=== PATIENT | male | born 1950 | race African-American/Black ===

== ENCOUNTER 2018-09-04 09:48 | Inpatient (IN) | payer MEDICARE ==
[~2018-09-04] VITALS: Ht 177.8 cm; Wt 126.2 kg
[2018-09-04] VITALS (10 sets, daily range): BP systolic 124–160; BP diastolic 67–80
[2018-09-04] MEDS ORDERED: ONDANSETRON PF 4 MG/2 ML VIAL. IV ONE (10:30)
[2018-09-04] MEDS ORDERED: fentaNYL PF VIAL 100 MCG/2 ML VIAL IV ONE (10:30)
[2018-09-04 11:08] LABS: BASO % 0 % (0-3); EOS # 0.1 x10^3/uL (0.0-0.7); EOS % 1 % (0-3); HEMATOCRIT 47.5 % (39.0-53.0); HEMOGLOBIN 16.8 g/dL (13.0-17.5); LYMPH # 1.6 x10^3/uL (1.0-4.8); LYMPH % 16 % (24-48); MEAN CORPUSCULAR HEMOGLOBIN 31 pg (25-35); MEAN CORPUSCULAR HGB CONC 35 g/dL (31-37); MEAN CORPUSCULAR VOLUME 88 fL (79-100); MONO # 0.9 x10^3/uL (0.0-1.1); MONO % 9 % (0-9); NEUT # 7.5 x10^3uL (1.8-7.7); NEUT % 74 % (31-73); PLATELET COUNT 211 x10^3/uL (140-400); RED CELL DISTRIBUTION WIDTH 13.1 % (11.5-14.5); WHITE BLOOD COUNT 10.1 x10^3/uL (4.0-11.0)
[2018-09-04 11:10] LABS: CALCIUM 9.7 mg/dL (8.5-10.1); GFR 89.9; POTASSIUM 3.6 mmol/L (3.5-5.1)
[2018-09-04 11:15] LABS: ALBUMIN 4.1 g/dL (3.4-5.0); ALBUMIN/GLOBULIN RATIO 1.1 (1.0-1.7); TOTAL BILIRUBIN 2.6 mg/dL (0.2-1.0); TOTAL PROTEIN 7.9 g/dL (6.4-8.2)
--- NOTE | 2018-09-04 11:39 | PHYS DOC ---
Past Medical History Past Medical History: Diabetes-Type II, Hypertension Past Surgical History: Other Additional Past Surgical Histo: 'BACK SX' Alcohol Use: None Drug Use: None Adult General Chief Complaint Chief Complaint: ABDOMINAL PAIN HPI HPI Patient is a 68 year old male who presents with complaining of abdominal pain. Patient complaining of sudden onset of upper abdominal pain that woke him up at 4 AM today as a constant pain without radiation. Patient complaining of nausea associated with anorexia without shortness of of breath, fever and chills, chest pain, urinary symptoms, constipation, history of the same pain. Patient has chronic diarrhea after was started on metformin about 2 months ago without new change. Review of Systems Review of Systems Constitutional: Denies fever or chills [] Eyes: Denies change in visual acuity, redness, or eye pain [] HENT: Denies nasal congestion or sore throat [] Respiratory: Denies cough or shortness of breath [] Cardiovascular: No additional information not addressed in HPI [] GI: Reports abdominal pain, nausea, denies vomiting, bloody stools or diarrhea [] : Denies dysuria or hematuria [] Musculoskeletal: Denies back pain or joint pain [] Integument: Denies rash or skin lesions [] Neurologic: Denies headache, focal weakness or sensory changes [] Endocrine: Denies polyuria or polydipsia [] All other systems were reviewed and found to be within normal limits, except as documented in this note. Current Medications Current Medications Current Medications Medications (Trade) Dose Ordered Sig/Alejandra Start Time Stop Time Status Last Admin Dose Admin Fentanyl Citrate (Fentanyl 2ml Vial) 50 mcg 1X ONCE 09/04/18 10:30 09/04/18 10:32 DC 09/04/18 10:46 50 MCG Ondansetron HCl (Zofran) 4 mg 1X ONCE 09/04/18 10:30 09/04/18 10:32 DC 09/04/18 10:46 4 MG Allergies Allergies Allergies Coded Allergies Type Severity Reaction Last Updated Verified No Known Drug Allergies 09/04/18 No Physical Exam Physical Exam Constitutional: Well developed, well nourished, mild distress, non-toxic appearance, obese. [] HENT: Normocephalic, atraumatic, oropharynx moist. Eyes: PERRLA, EOMI, conjunctiva normal, no discharge. [] Neck: Normal range of motion, no tenderness, supple, no stridor. [] Cardiovascular:Heart rate regular rhythm, no murmur [] Lungs & Thorax: Bilateral breath sounds clear to auscultation [] Abdomen: Bowel sounds normal, soft, epigastric guarding, no tenderness, no masses, no pulsatile masses. [] Skin: Warm, dry, no erythema, no rash. [] Back: No tenderness, no CVA tenderness. [] Extremities: No tenderness, no cyanosis, no clubbing, ROM intact, no edema. [] Neurologic: Alert and oriented X 3, normal motor function, normal sensory functi on, no focal deficits noted. [] Psychologic: Affect normal, judgement normal, mood normal. [] Current Patient Data Vital Signs Vital Signs Date Time Temp Pulse Resp B/P (MAP) Pulse Ox O2 Delivery O2 Flow Rate FiO2 09/04/18 11:30 92 14 188/84 (118) 97 Room Air 09/04/18 09:58 97.6 97.6 Lab Values Laboratory Tests Test 09/04/18 10:07 White Blood Count 10.1 x10^3/uL (4.0-11.0) Red Blood Count 5.40 x10^6/uL (4.30-5.70) Hemoglobin 16.8 g/dL (13.0-17.5) Hematocrit 47.5 % (39.0-53.0) Mean Corpuscular Volume 88 fL (79-100) Mean Corpuscular Hemoglobin 31 pg (25-35) Mean Corpuscular Hemoglobin Concent 35 g/dL (31-37) Red Cell Distribution Width 13.1 % (11.5-14.5) Platelet Count 211 x10^3/uL (140-400) Neutrophils (%) (Auto) 74 % (31-73) H Lymphocytes (%) (Auto) 16 % (24-48) L Monocytes (%) (Auto) 9 % (0-9) Eosinophils (%) (Auto) 1 % (0-3) Basophils (%) (Auto) 0 % (0-3) Neutrophils # (Auto) 7.5 x10^3uL (1.8-7.7) Lymphocytes # (Auto) 1.6 x10^3/uL (1.0-4.8) Monocytes # (Auto) 0.9 x10^3/uL (0.0-1.1) Eosinophils # (Auto) 0.1 x10^3/uL (0.0-0.7) Basophils # (Auto) 0.0 x10^3/uL (0.0-0.2) PTT 33 SEC (24-38) Sodium Level 137 mmol/L (136-145) Potassium Level 3.6 mmol/L (3.5-5.1) Chloride Level 97 mmol/L (98-107) L Carbon Dioxide Level 24 mmol/L (21-32) Anion Gap 16 (6-14) H Blood Urea Nitrogen 20 mg/dL (8-26) Creatinine 1.0 mg/dL (0.7-1.3) Estimated GFR (Cockcroft-Gault) 89.9 BUN/Creatinine Ratio 20 (6-20) Glucose Level 273 mg/dL (70-99) H Calcium Level 9.7 mg/dL (8.5-10.1) Total Bilirubin 2.6 mg/dL (0.2-1.0) H Aspartate Amino Transferase (AST) 26 U/L (15-37) Alanine Aminotransferase (ALT) 29 U/L (16-63) Alkaline Phosphatase 91 U/L (46-116) Creatine Kinase 44 U/L (39-308) Troponin I Quantitative < 0.017 ng/mL (0.000-0.055) Total Protein 7.9 g/dL (6.4-8.2) Albumin 4.1 g/dL (3.4-5.0) Albumin/Globulin Ratio 1.1 (1.0-1.7) Lipase 54 U/L (73-393) L Laboratory Tests 09/04/18 10:07 Laboratory Tests 09/04/18 10:07 EKG EKG EKG interpreted by me. EKG at 1037 showed normal sinus rhythm at rate of 90, normal OH interval, poor R-wave progress in anteroseptal leads, no acute ST and T-wave abnormalities. Radiology/Procedures Radiology/Procedures [facility] [address] [place] [address] IMAGING REPORT Signed PATIENT: JOMAR MAYES ACCOUNT: [id number] : 1950 LOCATION: ER AGE: 68 SEX: M EXAM STATUS: REG ER ORD. PHYSICIAN: GUERRERO BOO MD REASON: upper abd pain, [facility] HAS SEEN, WILL BE THERE SOON I CAN PROCEDURE: ABDOMEN LTD Examination: Ultrasound right upper quadrant abdomen HISTORY: History of upper abdominal abdominal pain. COMPARISON: None available FINDINGS: Pancreas is not well-visualized due to bowel gas. There is increased echogenicity noted throughout the liver likely hepatic steatosis. The gallbladder is mildly distended. Moderate-sized sludge ball identified within the gallbladder. The gallbladder wall thickness measures 2 mm. Examination is positive for ultrasonographic evidence of Phelps's sign. The right kidney measures 12 cm in length. IMPRESSION: 1. Moderate-sized sludge ball identified within the gallbladder. Examination is positive for ultrasonographic evidence of Phelps's sign however no evidence of pericholecystic fluid or gallbladder wall thickening identified to suggest acute cholecystitis. 2. Hepatomegaly with hepatic steatosis. Electronically signed by: Demarcus Grover MD (09/04/2018 12:20 PM) [facility] DICTATED and SIGNED BY: DEMARCUS GROVER MD DATE: 09/04/18 1220 [facility] [address] [place], [place] [id number] IMAGING REPORT Signed PATIENT: JOMAR MAYES ACCOUNT: [id number] : 1950 LOCATION: [address] [place] [address] AGE: 68 SEX: M EXAM STATUS: ADM IN ORD. PHYSICIAN: GUERRERO BOO MD REASON: epigastric pain PROCEDURE: CT ABD PELV W/ IV CONTRST ONLY Examination: CT of the abdomen pelvis with IV contrast HISTORY: History of epigastric pain COMPARISON: None available technique: Axial CT images of the abdomen pelvis were performed with IV contrast. Coronal and sagittal reformats are performed Exposure: One or more of the following individualized dose reduction techniques were utilized for this examination: 1. Automated exposure control 2. Adjustment of the mA and/or kV according to patient size 3. Use of iterative reconstruction technique FINDINGS: The bibasilar lungs are clear. No evidence of free air identified in the abdomen. There is diffuse decreased attenuation noted in the liver likely hepatic steatosis. The visualized spleen, adrenals grossly appears unremarkable. The gallbladder is mildly distended. There is a 2.8 cm density identified within the gallbladder probably sludge ball. Fatty atrophic changes of the pancreas. Small hiatal hernia. The stomach is minimally distended. The small bowel is nondilated. Feces and gas noted in the colon. The appendix is not identified. Urinary bladder is mildly distended. 7 mm calculus identified in the right kidney. Punctate 1 mm calculus left kidney. No evidence of hydronephrosis. Moderate aortic atherosclerosis. Moderate degenerative changes thoracic and lumbar spine. IMPRESSION: 1. 2.8 cm density identified in the proximal gallbladder likely sludge ball. 2. Hepatic steatosis. 2. Bilateral nephrolithiasis. Electronically signed by: Demarcus Grover MD (09/04/2018 1:06 PM) [facility] DICTATED and SIGNED BY: DEMARCUS GROVER MD DATE: 09/04/18 1307 Course & Med Decision Making Course & Med Decision Making Pertinent Labs and Imaging studies reviewed. (See chart for details) Evaluation of patient in ER showed 68-year-old male patient with complaining of sudden onset of epigastric pain as this morning. Patient had unremarkable labs except for mild elevation of bilirubin. Gallbladder ultrasound showed sludge that confirmed with CT of abdomen and pelvis. Dr. Pinon on-call surgeon was consulted at 1213 and recommended to admit patient to hospitalist. Patient requiring admission for further evaluation and treatment. Discussed with Dr. Landin who is in agreement with admission. Discussed findings and plan with patient and family, who acknowledge understanding and agreement. Dragon Disclaimer Dragon Disclaimer This electronic medical record was generated, in whole or in part, using a voice recognition dictation system. Departure Departure Impression: Primary Impression: Biliary colic Additional Impressions: Hyperglycemia Serum total bilirubin elevated Gallbladder sludge Disposition: ADMITTED INPATIENT (at 1220) Admitting Physician: Juan Capone (accepted admission at 1219) Condition: IMPROVED Referrals: KATELYNN WHELAN MD (PCP) Problem Qualifiers GUERRERO BOO MD September 04, 2018 11:39
--- NOTE | 2018-09-04 12:23 | RAD ---
Examination: Ultrasound right upper quadrant abdomen HISTORY: History of upper abdominal abdominal pain. COMPARISON: None available FINDINGS: Pancreas is not well-visualized due to bowel gas. There is increased echogenicity noted throughout the liver likely hepatic steatosis. The gallbladder is mildly distended. Moderate-sized sludge ball identified within the gallbladder. The gallbladder wall thickness measures 2 mm. Examination is positive for ultrasonographic evidence of Phelps's sign. The right kidney measures 12 cm in length. IMPRESSION: 1. Moderate-sized sludge ball identified within the gallbladder. Examination is positive for ultrasonographic evidence of Phelps's sign however no evidence of pericholecystic fluid or gallbladder wall thickening identified to suggest acute cholecystitis. 2. Hepatomegaly with hepatic steatosis. Electronically signed by: Demarcus Grover MD (09/04/2018 12:20 PM) [facility]
[2018-09-04] MEDS: IV NORMAL SALINE 1000ML BAG 1,000 ML IV SCH ×3 (12:25→22:34)
[2018-09-04] MEDS ORDERED: IOHEXOL 300 MG/ML 100ML VIAL. IV ONE (12:30)
[2018-09-04] MEDS ORDERED: CONTRAST GIVEN. MC PRN (12:30)
--- NOTE | 2018-09-04 12:42 | PDOC1 ---
History and Physical Date of Admission Date of Admission DATE: 09/04/18 TIME: 12:41 Identification/Chief Complaint Chief Complaint seen in er ,Patient is a 68 year old male who presents with complaining of abdominal pain. Patient complaining of sudden onset of upper abdominal pain that woke him up at 4 AM today as a constant pain without radiation. Patient complaining of nausea associated with anorexia without shortness of of breath, fever and chills, chest pain, urinary symptoms, constipation, history of the same pain. Past Medical History Past Medical History Past Medical History Past Medical History Past Medical History: Diabetes-Type II, Hypertension Past Surgical History: Other Additional Past Surgical Histo: 'BACK SX' Alcohol Use: None Drug Use: None FAMILY HX HTN Cardiovascular: HTN Family History Family History: High Cholestrol, Hypertension Social History Smoke: No ALCOHOL: none Drugs: None Current Problem List Problem List Problems Medical Problems: (1) Biliary colic Status: Acute (2) Hyperglycemia Status: Acute (3) Serum total bilirubin elevated Status: Acute Current Medications Current Medications Current Medications Fentanyl Citrate (Fentanyl 2ml Vial) 50 mcg 1X ONCE IV Last administered on 09/04/18at 10:46; Start 09/04/18 at 10:30; Stop 09/04/18 at 10:32; Status DC Ondansetron HCl (Zofran) 4 mg 1X ONCE IV Last administered on 09/04/18at 10:46; Start 09/04/18 at 10:30; Stop 09/04/18 at 10:32; Status DC Hydromorphone HCl (Dilaudid) 1 mg 1X ONCE IV ; Start 09/04/18 at 12:45; Stop 09/04/18 at 12:46 Iohexol (Omnipaque 300 Mg/ml) 100 ml 1X ONCE IV ; Start 09/04/18 at 12:30; Stop 09/04/18 at 12:31; Status DC Sodium Chloride 1,000 ml @ 150 mls/hr Q6H40M IV ; Start 09/04/18 at 12:25; Stop 09/05/18 at 12:24 Info (CONTRAST GIVEN -- Rx MONITORING) 1 each PRN DAILY PRN MC SEE COMMENTS; Start 09/04/18 at 12:30; Stop 09/06/18 at 12:29 Allergies Allergies: Coded Allergies: No Known Drug Allergies (Unverified , 09/04/18) ROS Review of System Review of Systems Review of Systems Constitutional: Denies fever or chills [] Eyes: Denies change in visual acuity, redness, or eye pain [] HENT: Denies nasal congestion or sore throat [] Respiratory: Denies cough or shortness of breath [] Cardiovascular: No additional information not addressed in HPI [] GI: Reports abdominal pain, nausea, denies vomiting, bloody stools or diarrhea [] : Denies dysuria or hematuria [] Musculoskeletal: Denies back pain or joint pain [] Integument: Denies rash or skin lesions [] Neurologic: Denies headache, focal weakness or sensory changes [] Endocrine: Denies polyuria or polydipsia [] 14 pt systems were reviewed and found to be within normal limits, except as documented Physical Exam Physical Exam Physical Exam Physical Exam Constitutional: Well developed, well nourished, mild distress, non-toxic appearance, obese. [] HENT: Normocephalic, atraumatic, oropharynx moist. Eyes: PERRLA, EOMI, conjunctiva normal, no discharge. [] Neck: Normal range of motion, no tenderness, supple, no stridor. [] Cardiovascular:Heart rate regular rhythm, no murmur [] Lungs & Thorax: Bilateral breath sounds clear to auscultation [] Abdomen: Bowel sounds normal, soft, epigastric guarding, no tenderness, no masses, no pulsatile masses. [] Skin: Warm, dry, no erythema, no rash. [] Back: No tenderness, no CVA tenderness. [] Extremities: No tenderness, no cyanosis, no clubbing, ROM intact, no edema. [] Neurologic: Alert and oriented X 3, normal motor function, normal sensory function, no focal deficits noted. [] Psychologic: Affect normal, judgement normal, mood normal. [] General: Alert, Oriented X3, Cooperative HEENT: Atraumatic, PERRLA Lungs: Clear to auscultation Rectal Exam: not examined Neuro: Normal speech, Cranial nerves 3-12 NL Psych/Mental Status: Mental status NL, Mood NL Vitals Vitals Vital Signs Date Time Temp Pulse Resp B/P (MAP) Pulse Ox O2 Delivery O2 Flow Rate FiO2 09/04/18 10:46 20 Room Air 09/04/18 09:58 97.6 93 195/92 (126) 97 97.6 Labs Labs Laboratory Tests Test 09/04/18 10:07 White Blood Count 10.1 x10^3/uL (4.0-11.0) Red Blood Count 5.40 x10^6/uL (4.30-5.70) Hemoglobin 16.8 g/dL (13.0-17.5) Hematocrit 47.5 % (39.0-53.0) Mean Corpuscular Volume 88 fL (79-100) Mean Corpuscular Hemoglobin 31 pg (25-35) Mean Corpuscular Hemoglobin Concent 35 g/dL (31-37) Red Cell Distribution Width 13.1 % (11.5-14.5) Platelet Count 211 x10^3/uL (140-400) Neutrophils (%) (Auto) 74 % (31-73) Lymphocytes (%) (Auto) 16 % (24-48) Monocytes (%) (Auto) 9 % (0-9) Eosinophils (%) (Auto) 1 % (0-3) Basophils (%) (Auto) 0 % (0-3) Neutrophils # (Auto) 7.5 x10^3uL (1.8-7.7) Lymphocytes # (Auto) 1.6 x10^3/uL (1.0-4.8) Monocytes # (Auto) 0.9 x10^3/uL (0.0-1.1) Eosinophils # (Auto) 0.1 x10^3/uL (0.0-0.7) Basophils # (Auto) 0.0 x10^3/uL (0.0-0.2) Activated Partial Thromboplast Time 33 SEC (24-38) Sodium Level 137 mmol/L (136-145) Potassium Level 3.6 mmol/L (3.5-5.1) Chloride Level 97 mmol/L (98-107) Carbon Dioxide Level 24 mmol/L (21-32) Anion Gap 16 (6-14) Blood Urea Nitrogen 20 mg/dL (8-26) Creatinine 1.0 mg/dL (0.7-1.3) Estimated GFR (Cockcroft-Gault) 89.9 BUN/Creatinine Ratio 20 (6-20) Glucose Level 273 mg/dL (70-99) Calcium Level 9.7 mg/dL (8.5-10.1) Total Bilirubin 2.6 mg/dL (0.2-1.0) Aspartate Amino Transf (AST/SGOT) 26 U/L (15-37) Alanine Aminotransferase (ALT/SGPT) 29 U/L (16-63) Alkaline Phosphatase 91 U/L (46-116) Creatine Kinase 44 U/L (39-308) Troponin I Quantitative < 0.017 ng/mL (0.000-0.055) Total Protein 7.9 g/dL (6.4-8.2) Albumin 4.1 g/dL (3.4-5.0) Albumin/Globulin Ratio 1.1 (1.0-1.7) Lipase 54 U/L (73-393) Laboratory Tests Test 09/04/18 10:07 White Blood Count 10.1 x10^3/uL (4.0-11.0) Red Blood Count 5.40 x10^6/uL (4.30-5.70) Hemoglobin 16.8 g/dL (13.0-17.5) Hematocrit 47.5 % (39.0-53.0) Mean Corpuscular Volume 88 fL (79-100) Mean Corpuscular Hemoglobin 31 pg (25-35) Mean Corpuscular Hemoglobin Concent 35 g/dL (31-37) Red Cell Distribution Width 13.1 % (11.5-14.5) Platelet Count 211 x10^3/uL (140-400) Neutrophils (%) (Auto) 74 % (31-73) Lymphocytes (%) (Auto) 16 % (24-48) Monocytes (%) (Auto) 9 % (0-9) Eosinophils (%) (Auto) 1 % (0-3) Basophils (%) (Auto) 0 % (0-3) Neutrophils # (Auto) 7.5 x10^3uL (1.8-7.7) Lymphocytes # (Auto) 1.6 x10^3/uL (1.0-4.8) Monocytes # (Auto) 0.9 x10^3/uL (0.0-1.1) Eosinophils # (Auto) 0.1 x10^3/uL (0.0-0.7) Basophils # (Auto) 0.0 x10^3/uL (0.0-0.2) Activated Partial Thromboplast Time 33 SEC (24-38) Sodium Level 137 mmol/L (136-145) Potassium Level 3.6 mmol/L (3.5-5.1) Chloride Level 97 mmol/L (98-107) Carbon Dioxide Level 24 mmol/L (21-32) Anion Gap 16 (6-14) Blood Urea Nitrogen 20 mg/dL (8-26) Creatinine 1.0 mg/dL (0.7-1.3) Estimated GFR (Cockcroft-Gault) 89.9 BUN/Creatinine Ratio 20 (6-20) Glucose Level 273 mg/dL (70-99) Calcium Level 9.7 mg/dL (8.5-10.1) Total Bilirubin 2.6 mg/dL (0.2-1.0) Aspartate Amino Transf (AST/SGOT) 26 U/L (15-37) Alanine Aminotransferase (ALT/SGPT) 29 U/L (16-63) Alkaline Phosphatase 91 U/L (46-116) Creatine Kinase 44 U/L (39-308) Troponin I Quantitative < 0.017 ng/mL (0.000-0.055) Total Protein 7.9 g/dL (6.4-8.2) Albumin 4.1 g/dL (3.4-5.0) Albumin/Globulin Ratio 1.1 (1.0-1.7) Lipase 54 U/L (73-393) Images Images SEX: M EXAM STATUS: REG ER ORD. PHYSICIAN: GUERRERO BOO MD REASON: upper abd pain, [facility] HAS SEEN, WILL BE THERE SOON I CAN PROCEDURE: ABDOMEN LTD Examination: Ultrasound right upper quadrant abdomen HISTORY: History of upper abdominal abdominal pain. COMPARISON: None available FINDINGS: Pancreas is not well-visualized due to bowel gas. There is increased echogenicity noted throughout the liver likely hepatic steatosis. The gallbladder is mildly distended. Moderate-sized sludge ball identified within the gallbladder. The gallbladder wall thickness measures 2 mm. Examination is positive for ultrasonographic evidence of Phelps's sign. The right kidney measures 12 cm in length. IMPRESSION: 1. Moderate-sized sludge ball identified within the gallbladder. Examination is positive for ultrasonographic evidence of Phelps's sign however no evidence of pericholecystic fluid or gallbladder wall thickening identified to suggest acute cholecystitis. 2. Hepatomegaly with hepatic steatosis. Electronically signed by: Demarcus Grover MD (09/04/2018 12:20 PM) [facility] VTE Prophylaxis Ordered VTE Prophylaxis Devices: Yes VTE Pharmacological Prophylaxi: Yes Assessment/Plan Assessment/Plan IMPRESSION: 1. Moderate-sized sludge ball identified within the gallbladder. Examination is positive for ultrasonographic evidence of Phelps's sign however no evidence of pericholecystic fluid or gallbladder wall thickening identified to suggest acute cholecystitis. 2. Hepatomegaly with hepatic steatosis. 3. Morbid obesity plan admit SURG consult CARLOS MIRAMONTES MD September 04, 2018 12:42
[2018-09-04] MEDS ORDERED: HYDROmorphone 2 MG/ML VIAL IV ONE (12:45)
--- NOTE | 2018-09-04 13:09 | RAD ---
Examination: CT of the abdomen pelvis with IV contrast HISTORY: History of epigastric pain COMPARISON: None available technique: Axial CT images of the abdomen pelvis were performed with IV contrast. Coronal and sagittal reformats are performed Exposure: One or more of the following individualized dose reduction techniques were utilized for this examination: 1. Automated exposure control 2. Adjustment of the mA and/or kV according to patient size 3. Use of iterative reconstruction technique FINDINGS: The bibasilar lungs are clear. No evidence of free air identified in the abdomen. There is diffuse decreased attenuation noted in the liver likely hepatic steatosis. The visualized spleen, adrenals grossly appears unremarkable. The gallbladder is mildly distended. There is a 2.8 cm density identified within the gallbladder probably sludge ball. Fatty atrophic changes of the pancreas. Small hiatal hernia. The stomach is minimally distended. The small bowel is nondilated. Feces and gas noted in the colon. The appendix is not identified. Urinary bladder is mildly distended. 7 mm calculus identified in the right kidney. Punctate 1 mm calculus left kidney. No evidence of hydronephrosis. Moderate aortic atherosclerosis. Moderate degenerative changes thoracic and lumbar spine. IMPRESSION: 1. 2.8 cm density identified in the proximal gallbladder likely sludge ball. 2. Hepatic steatosis. 2. Bilateral nephrolithiasis. Electronically signed by: Demarcus Grover MD (09/04/2018 1:06 PM) [facility]
[2018-09-04 13:45] LABS: BILIRUBIN,URINE NEGATIVE (NEG); CLARITY,URINE CLEAR; COLOR,URINE YELLOW; NITRITE,URINE NEGATIVE (NEG); PH,URINE 5.5; PROTEIN,URINE NEGATIVE (NEG-TRACE)
[2018-09-04 13:52] LABS: BACTERIA,URINE 0 /HPF (0-FEW); RBC,URINE 0 /HPF (0-2); WBC,URINE 0 /HPF (0-4)
[2018-09-04] MEDS ORDERED: IV RINGERS,LACTATED 1000ML 1,000 ML IV SCH (14:47)
[2018-09-04] MEDS ORDERED: ONDANSETRON PF 4 MG/2 ML VIAL. IV PRN (15:00)
[2018-09-04] MEDS ORDERED: fentaNYL PF VIAL 100 MCG/2 ML VIAL IV PRN ×2 (15:00)
[2018-09-04] MEDS ORDERED: PROCHLORPERAZINE 10 MG/2 ML VIAL. IV PRN (15:00)
[2018-09-04] MEDS ORDERED: LIDOCAINE 1% PF 2 ML VIAL. ID PRN (15:00)
[2018-09-04] MEDS ORDERED: HYDROmorphone 2 MG/ML VIAL IV PRN (15:00)
[2018-09-04] MEDS ORDERED: MORPHINE SULFATE 2 MG/ML VIAL. IV PRN (15:00)
--- NOTE | 2018-09-04 15:03 | PDOC2 ---
CONSULT Date of Consult Date of Consult DATE: 09/04/18 TIME: 14:54 Reason for Consult Reason for Consult: epigastric pain Referring Physician Referring Physician: Dr Capone Identification/Chief Complaint Chief Complaint epigastric pain Source Source: Chart review, Patient History of Present Illness Reason for Visit: Mr Merlos is a 68 yo obese male recently Dx with DM who was awakened earlier this AM with 7 out 10 pain in his epigastrium. He came to the ED where an US showed a sludge ball in his gallbladder. No similar previous episodes Past Medical History Cardiovascular: HTN Endocrine: Diabetes Past Surgical History Past Surgical History: Other (back surgery) Family History Family History: High Cholestrol, Hypertension Social History No ALCOHOL: none Drugs: None Lives: with Family Current Problem List Problem List Problems Medical Problems: (1) Biliary colic Status: Acute (2) Hyperglycemia Status: Acute (3) Serum total bilirubin elevated Status: Acute Current Medications Current Medications Current Medications Fentanyl Citrate (Fentanyl 2ml Vial) 50 mcg 1X ONCE IV Last administered on 09/04/18at 10:46; Start 09/04/18 at 10:30; Stop 09/04/18 at 10:32; Status DC Ondansetron HCl (Zofran) 4 mg 1X ONCE IV Last administered on 09/04/18at 10:46; Start 09/04/18 at 10:30; Stop 09/04/18 at 10:32; Status DC Hydromorphone HCl (Dilaudid) 1 mg 1X ONCE IV Last administered on 09/04/18at 12:59; Start 09/04/18 at 12:45; Stop 09/04/18 at 12:46; Status DC Iohexol (Omnipaque 300 Mg/ml) 100 ml 1X ONCE IV Last administered on 09/04/18at 12:50; Start 09/04/18 at 12:30; Stop 09/04/18 at 12:31; Status DC Sodium Chloride 1,000 ml @ 150 mls/hr Q6H40M IV ; Start 09/04/18 at 12:25; Stop 09/05/18 at 12:24 Info (CONTRAST GIVEN -- Rx MONITORING) 1 each PRN DAILY PRN MC SEE COMMENTS; Start 09/04/18 at 12:30; Stop 09/06/18 at 12:29 Cefazolin Sodium 3 gm/Dextrose 100 ml @ 200 mls/hr 1X PREOP PRN IV protocol; Start 09/05/18 at 06:00; Stop 09/05/18 at 15:00 Ondansetron HCl (Zofran) 4 mg PRN Q6HRS PRN IV NAUSEA/VOMITING; Start 09/04/18 at 15:00; Stop 09/05/18 at 14:59 Fentanyl Citrate (Fentanyl 2ml Vial) 25 mcg PRN Q5MIN PRN IV MILD PAIN 1-3; Start 09/04/18 at 15:00; Stop 09/05/18 at 14:59 Fentanyl Citrate (Fentanyl 2ml Vial) 50 mcg PRN Q5MIN PRN IV MODERATE TO SEVERE PAIN; Start 09/04/18 at 15:00; Stop 09/05/18 at 14:59 Morphine Sulfate (Morphine Sulfate) 1 mg PRN Q10MIN PRN IV SEVERE PAIN 7-10; Start 09/04/18 at 15:00; Stop 09/05/18 at 14:59 Ringer's Solution 1,000 ml @ 30 mls/hr Q24H IV ; Start 09/04/18 at 14:47; Stop 09/05/18 at 02:46 Lidocaine HCl (Xylocaine-Mpf 1% 2ml Vial) 2 ml PRN 1X PRN ID PRIOR TO IV START; Start 09/04/18 at 15:00; Stop 09/05/18 at 14:59 Hydromorphone HCl (Dilaudid) 0.5 mg PRN Q10MIN PRN IV SEV PAIN, Second choice; Start 09/04/18 at 15:00; Stop 09/05/18 at 14:59 Prochlorperazine Edisylate (Compazine) 5 mg PACU PRN PRN IV NAUSEA, MRX1; Start 09/04/18 at 15:00; Stop 09/05/18 at 14:59 Allergies Allergies: Coded Allergies: No Known Drug Allergies (Unverified , 09/04/18) ROS Gastrointestinal: Yes Nausea, Yes Abdominal Pain Physical Exam General: Alert, Oriented X3, No acute distress HEENT: Atraumatic Lungs: Normal air movement Heart: Regular rate Abdomen: Soft, Other (mildy TTP in the RUQ) Extremities: No clubbing Skin: Other (warm, dry) Vitals VITALS Vital Signs Date Time Temp Pulse Resp B/P (MAP) Pulse Ox O2 Delivery O2 Flow Rate FiO2 5/18/19 12:59 18 09/04/18 12:30 94 Room Air 09/04/18 11:30 97 09/04/18 09:58 97.6 97.6 Labs Labs Laboratory Tests Test 09/04/18 10:07 09/04/18 13:15 White Blood Count 10.1 x10^3/uL (4.0-11.0) Red Blood Count 5.40 x10^6/uL (4.30-5.70) Hemoglobin 16.8 g/dL (13.0-17.5) Hematocrit 47.5 % (39.0-53.0) Mean Corpuscular Volume 88 fL (79-100) Mean Corpuscular Hemoglobin 31 pg (25-35) Mean Corpuscular Hemoglobin Concent 35 g/dL (31-37) Red Cell Distribution Width 13.1 % (11.5-14.5) Platelet Count 211 x10^3/uL (140-400) Neutrophils (%) (Auto) 74 % (31-73) Lymphocytes (%) (Auto) 16 % (24-48) Monocytes (%) (Auto) 9 % (0-9) Eosinophils (%) (Auto) 1 % (0-3) Basophils (%) (Auto) 0 % (0-3) Neutrophils # (Auto) 7.5 x10^3uL (1.8-7.7) Lymphocytes # (Auto) 1.6 x10^3/uL (1.0-4.8) Monocytes # (Auto) 0.9 x10^3/uL (0.0-1.1) Eosinophils # (Auto) 0.1 x10^3/uL (0.0-0.7) Basophils # (Auto) 0.0 x10^3/uL (0.0-0.2) Activated Partial Thromboplast Time 33 SEC (24-38) Sodium Level 137 mmol/L (136-145) Potassium Level 3.6 mmol/L (3.5-5.1) Chloride Level 97 mmol/L (98-107) Carbon Dioxide Level 24 mmol/L (21-32) Anion Gap 16 (6-14) Blood Urea Nitrogen 20 mg/dL (8-26) Creatinine 1.0 mg/dL (0.7-1.3) Estimated GFR (Cockcroft-Gault) 89.9 BUN/Creatinine Ratio 20 (6-20) Glucose Level 273 mg/dL (70-99) Calcium Level 9.7 mg/dL (8.5-10.1) Total Bilirubin 2.6 mg/dL (0.2-1.0) Aspartate Amino Transf (AST/SGOT) 26 U/L (15-37) Alanine Aminotransferase (ALT/SGPT) 29 U/L (16-63) Alkaline Phosphatase 91 U/L (46-116) Creatine Kinase 44 U/L (39-308) Troponin I Quantitative < 0.017 ng/mL (0.000-0.055) Total Protein 7.9 g/dL (6.4-8.2) Albumin 4.1 g/dL (3.4-5.0) Albumin/Globulin Ratio 1.1 (1.0-1.7) Lipase 54 U/L (73-393) Urine Collection Type Void Urine Color Yellow Urine Clarity Clear Urine pH 5.5 Urine Specific [place] >=1.030 Urine Protein Negative mg/dL (NEG-TRACE) Urine Glucose (UA) >=1000 mg/dL (NEG) Urine Ketones (Stick) 15 mg/dL (NEG) Urine Blood Negative (NEG) Urine Nitrite Negative (NEG) Urine Bilirubin Negative (NEG) Urine Urobilinogen Dipstick 1.0 mg/dL (0.2 mg/dL) Urine Leukocyte Esterase Negative (NEG) Urine RBC 0 /HPF (0-2) Urine WBC 0 /HPF (0-4) Urine Squamous Epithelial Cells None /LPF Urine Bacteria 0 /HPF (0-FEW) Urine Mucus Marked /LPF Laboratory Tests Test 09/04/18 10:07 09/04/18 13:15 White Blood Count 10.1 x10^3/uL (4.0-11.0) Red Blood Count 5.40 x10^6/uL (4.30-5.70) Hemoglobin 16.8 g/dL (13.0-17.5) Hematocrit 47.5 % (39.0-53.0) Mean Corpuscular Volume 88 fL (79-100) Mean Corpuscular Hemoglobin 31 pg (25-35) Mean Corpuscular Hemoglobin Concent 35 g/dL (31-37) Red Cell Distribution Width 13.1 % (11.5-14.5) Platelet Count 211 x10^3/uL (140-400) Neutrophils (%) (Auto) 74 % (31-73) Lymphocytes (%) (Auto) 16 % (24-48) Monocytes (%) (Auto) 9 % (0-9) Eosinophils (%) (Auto) 1 % (0-3) Basophils (%) (Auto) 0 % (0-3) Neutrophils # (Auto) 7.5 x10^3uL (1.8-7.7) Lymphocytes # (Auto) 1.6 x10^3/uL (1.0-4.8) Monocytes # (Auto) 0.9 x10^3/uL (0.0-1.1) Eosinophils # (Auto) 0.1 x10^3/uL (0.0-0.7) Basophils # (Auto) 0.0 x10^3/uL (0.0-0.2) Activated Partial Thromboplast Time 33 SEC (24-38) Sodium Level 137 mmol/L (136-145) Potassium Level 3.6 mmol/L (3.5-5.1) Chloride Level 97 mmol/L (98-107) Carbon Dioxide Level 24 mmol/L (21-32) Anion Gap 16 (6-14) Blood Urea Nitrogen 20 mg/dL (8-26) Creatinine 1.0 mg/dL (0.7-1.3) Estimated GFR (Cockcroft-Gault) 89.9 BUN/Creatinine Ratio 20 (6-20) Glucose Level 273 mg/dL (70-99) Calcium Level 9.7 mg/dL (8.5-10.1) Total Bilirubin 2.6 mg/dL (0.2-1.0) Aspartate Amino Transf (AST/SGOT) 26 U/L (15-37) Alanine Aminotransferase (ALT/SGPT) 29 U/L (16-63) Alkaline Phosphatase 91 U/L (46-116) Creatine Kinase 44 U/L (39-308) Troponin I Quantitative < 0.017 ng/mL (0.000-0.055) Total Protein 7.9 g/dL (6.4-8.2) Albumin 4.1 g/dL (3.4-5.0) Albumin/Globulin Ratio 1.1 (1.0-1.7) Lipase 54 U/L (73-393) Urine Collection Type Void Urine Color Yellow Urine Clarity Clear Urine pH 5.5 Urine Specific [place] >=1.030 Urine Protein Negative mg/dL (NEG-TRACE) Urine Glucose (UA) >=1000 mg/dL (NEG) Urine Ketones (Stick) 15 mg/dL (NEG) Urine Blood Negative (NEG) Urine Nitrite Negative (NEG) Urine Bilirubin Negative (NEG) Urine Urobilinogen Dipstick 1.0 mg/dL (0.2 mg/dL) Urine Leukocyte Esterase Negative (NEG) Urine RBC 0 /HPF (0-2) Urine WBC 0 /HPF (0-4) Urine Squamous Epithelial Cells None /LPF Urine Bacteria 0 /HPF (0-FEW) Urine Mucus Marked /LPF Images Images US and CT done earlier are reviewed Assessment/Plan Assessment/Plan symptomatic GB disease DM obesity explained risks of l/s cholecystectomy including but not limited to bleeding, infection, injury to bowel, liver or bile ducts with need for further surgery, possible open procedure or diarrhea post op questions answered he will proceed CJ LLOYD MD September 04, 2018 15:03
[2018-09-04] MEDS ORDERED: SURGICEL HEMOSTAT 4X8 EACH. ONE (15:18)
[2018-09-04] MEDS ORDERED: BUPIVAC MPF-EPI 0.5%-1:200000 30 ML VIAL. ONE (15:18)
[2018-09-04] MEDS ORDERED: GLUCAGON,HUMAN RECOMBINANT 1 MG/ML VIAL. ONE (15:18)
[2018-09-04] MEDS ORDERED: IOHEXOL 300 MG/ML 50 ML VIAL. ONE (15:18)
[2018-09-04] MEDS ORDERED: LIDOCAINE 2% PF 5 ML VIAL. ONE (15:29)
[2018-09-04] MEDS ORDERED: PROPOFOL 20 ML IV ONE (15:29)
[2018-09-04] MEDS ORDERED: ONDANSETRON PF 4 MG/2 ML VIAL. ONE (15:30)
[2018-09-04] MEDS ORDERED: DEXAMETHASONE SOD PHOS 4 MG/ML VIAL ONE ×2 (15:30)
[2018-09-04] MEDS ORDERED: SUCCINYLCHOLINE 200 MG/10 ML VIAL. ONE (15:30)
[2018-09-04] MEDS ORDERED: ROCURONIUM 50 MG/5 ML VIAL. ONE (15:31)
[2018-09-04] MEDS ORDERED: fentaNYL PF VIAL 100 MCG/2 ML VIAL ONE ×2 (15:31→17:03)
[2018-09-04] MEDS ORDERED: ceFAZolin SODIUM 3 GM in IV DEXTROSE 5% 100ML 100 ML IV PRN (15:44)
[2018-09-04] MEDS ORDERED: NEOSTIGMINE METHYLSULFATE 5 MG/5 ML SYRINGE. ONE (17:34)
[2018-09-04] MEDS ORDERED: GLYCOPYRROLATE 1 MG/5 ML VIAL. ONE (17:35)
--- NOTE | 2018-09-04 18:07 | PDOC ---
BRIEF OPERATIVE NOTE Date: September 04, 2018 Pre-Op Diagnosis cholecystitis Post-Op Diagnosis same, gangrenous Procedure Performed l/s darell with cholangiograms Surgeon Zi Mud Car Worker Rose VALDERRAMA Anesthesia Type: General Blood Loss 10cc IV Fluid 500cc Specimens Obtained GB, bile culture Findings gangrenous cholecystitis Complications none Operative Note Wk # [id number] CJ LLOYD MD September 04, 2018 18:07
[2018-09-04] MEDS ORDERED: INSULIN REGULAR 100 UNIT/ML 3ML VIAL. SQ SCH (18:15)
[2018-09-04] MEDS ORDERED: INSULIN LISPRO 100 UNIT/ML 3ML VIAL. SQ ONE (18:30)
[2018-09-04] MEDS ORDERED: INSULIN LISPRO 100 UNIT/ML 3ML VIAL. SQ SCH (18:30)
--- NOTE | 2018-09-04 19:41 | RAD ---
Examination: Operative cholangiogram History: Cholecystectomy. Procedure: Fluoroscopic images were provided during the procedure. The cystic duct has been catheterized and contrast has been injected. Findings: The common hepatic bile duct and common bile duct are patent without evidence of intraluminal filling defect or obstruction. Contrast empties normally into the duodenum. Total fluoroscopic time 0.14 minutes. 2 fluoroscopic images obtained. Impression: Normal operative cholangiogram. Electronically signed by: Demarcus Grover MD (09/04/2018 7:38 PM) [facility]
--- NOTE | 2018-09-04 19:45 | OP ---
DATE OF SURGERY: 09/04/2018 PREOPERATIVE DIAGNOSIS: Cholecystitis. POSTOPERATIVE DIAGNOSIS: Cholecystitis, gangrenous. PROCEDURE: Laparoscopic cholecystectomy with cholangiogram. SURGEON: Casey Lloyd MD PLANT FACILITIES TECHNICIAN: JANNIE Liz. ANESTHESIA: General endotracheal. ESTIMATED BLOOD LOSS: 10. INTRAVENOUS FLUID: 500. INDICATIONS: The patient is an obese 68-year-old gentleman with right upper quadrant pain and ultrasound showing a probable sludge ball in the gallbladder. He is brought for cholecystectomy. OPERATIVE FINDINGS: The liver was generous and smooth. The gallbladder had gangrenous changes. The cystic duct was packed with small stones. Visual inspection of the remainder of the abdomen failed to reveal obvious abnormalities. DESCRIPTION OF PROCEDURE: The patient brought to the operating suite, given a general endotracheal anesthetic and the abdomen prepped and draped in usual sterile fashion. A supraumbilical incision was infiltrated with local anesthetic, incised and a 5 mm Visiport used to safely gain access into the abdominal cavity, taking care to avoid injury to abdominal contents. Pneumoperitoneum established. Camera inserted. Inspection carried out. With the table in reverse Trendelenburg, rolled to the left, the epigastric, midclavicular, and lateral ports were placed under direct vision. The gallbladder was aspirated of approximately 80 mL of concentrated bile to allow grasping of the fundus and retraction of the gallbladder superolaterally. The cystic duct and cystic artery were identified. The duct was clipped on the gallbladder side. When opened for cholangiograms, we milked several small stones from the cystic duct. Cholangiograms were made. These were normal save what appeared to be a remaining small stone at the junction of cystic duct, common duct. In light of this, the catheter was changed to saline and with vigorous flushing of the cystic stump, the stone was delivered. The cystic duct was then clipped x 3 and divided, taking care to avoid injury or compromise the common duct. Cystic artery was clipped and divided and the gallbladder freed from the bed and placed in an EndoCatch bag. Good hemostasis present in the fossa, augmented with Surgicel. No evidence of bile leak seen. A 19-Japanese round Darrel drain was brought through the epigastric port out the lateral port, sewn to the skin with a silk stitch and left in the subhepatic space for postoperative drainage. Table returned to level. Gallbladder delivered through the epigastric incision. Epigastric incision closed with interrupted 0 Vicryl suture. Intra-abdominal pressure decreased to 6 cm of water. No bleeding from the epigastric closure. Some oozing from the midclavicular port site was controlled with cautery and local anesthetic and at 6 cm intra-abdominal pressure showed no evidence of bleeding. The drain site was unremarkable. Abdomen decompressed. Camera removed, no bleeding seen. Skin incisions closed with subcuticular 4-0 Monocryl. Steri-Strips and sterile dressings applied. The patient was awakened from his anesthetic and taken to the recovery room in satisfactory condition. CASEY LLOYD MD DR: KINSEY/harish JOB#: [id number] / [id number]
[2018-09-04] MEDS: PIPERACILLIN/TAZOBACTAM 4.5 GM in IV NORMAL SALINE 100ML 100 ML IV SCH (19:47)
[2018-09-04] MEDS: HYDROmorphone 2 MG/ML VIAL IV PRN (22:54)
[2018-09-05 03:07] VITALS: BP 120/68
[2018-09-05] MEDS: HYDROmorphone 2 MG/ML VIAL IV PRN ×2 (05:47→22:15)
[2018-09-05] MEDS: PIPERACILLIN/TAZOBACTAM 4.5 GM in IV NORMAL SALINE 100ML 100 ML IV SCH ×6 (05:47→23:15)
[2018-09-05] MEDS: IV NORMAL SALINE 1000ML BAG 1,000 ML IV SCH ×2 (06:10→08:46)
[2018-09-05 07:02] VITALS: BP 108/60
[2018-09-05] MEDS: TRIAMTERENE/HCTZ 37.5/25MG TABLET. PO SCH (08:46)
[2018-09-05] MEDS: ASPIRIN ENTERIC COATED 325 MG TABLET.DR. PO SCH (08:46)
[2018-09-05] MEDS: METOPROLOL SUCC 24HR ER 100 MG TAB.ER.24H. PO SCH (08:46)
[2018-09-05 09:40] LABS: BASO % 0 % (0-3); EOS % 0 % (0-3); HEMATOCRIT 40.4 % (39.0-53.0); HEMOGLOBIN 13.8 g/dL (13.0-17.5); LYMPH # 1.4 x10^3/uL (1.0-4.8); LYMPH % 11 % (24-48); MEAN CORPUSCULAR HEMOGLOBIN 30 pg (25-35); MEAN CORPUSCULAR HGB CONC 34 g/dL (31-37); MEAN CORPUSCULAR VOLUME 88 fL (79-100); MONO # 0.9 x10^3/uL (0.0-1.1); MONO % 7 % (0-9); NEUT # 11.1 x10^3uL (1.8-7.7); NEUT % 82 % (31-73); PLATELET COUNT 181 x10^3/uL (140-400); RED BLOOD COUNT 4.57 x10^6/uL (4.30-5.70); RED CELL DISTRIBUTION WIDTH 12.8 % (11.5-14.5); WHITE BLOOD COUNT 13.4 x10^3/uL (4.0-11.0)
[2018-09-05 09:46] LABS: CALCIUM 8.6 mg/dL (8.5-10.1); GFR 89.9; POTASSIUM 3.1 mmol/L (3.5-5.1)
--- NOTE | 2018-09-05 10:01 | PDOC ---
SURGICAL PROGRESS NOTE Subjective much less pain today taking clears Vital Signs Vital Signs Date Time Temp Pulse Resp B/P (MAP) Pulse Ox O2 Delivery O2 Flow Rate FiO2 09/05/18 08:46 69 108/60 09/05/18 08:23 Room Air 09/05/18 07:02 98.0 18 98 98.0 09/04/18 17:57 10 I&O Intake and Output 09/05/18 07:00 Intake Total 4082 ml Output Total 480 ml Balance 3602 ml Intake Oral 1310 ml IV Total 2772 ml Output Urine Total 450 ml Drainage Total 30 ml PATIENT HAS A ORUSE: No General: Alert, No acute distress Abdomen: Soft, Other (small amount of PHILLIP output with bile tinge) Labs Laboratory Tests Test 09/04/18 10:07 09/04/18 13:15 09/04/18 15:48 09/04/18 18:12 White Blood Count 10.1 x10^3/uL (4.0-11.0) Red Blood Count 5.40 x10^6/uL (4.30-5.70) Hemoglobin 16.8 g/dL (13.0-17.5) Hematocrit 47.5 % (39.0-53.0) Mean Corpuscular Volume 88 fL (79-100) Mean Corpuscular Hemoglobin 31 pg (25-35) Mean Corpuscular Hemoglobin Concent 35 g/dL (31-37) Red Cell Distribution Width 13.1 % (11.5-14.5) Platelet Count 211 x10^3/uL (140-400) Neutrophils (%) (Auto) 74 % (31-73) Lymphocytes (%) (Auto) 16 % (24-48) Monocytes (%) (Auto) 9 % (0-9) Eosinophils (%) (Auto) 1 % (0-3) Basophils (%) (Auto) 0 % (0-3) Neutrophils # (Auto) 7.5 x10^3uL (1.8-7.7) Lymphocytes # (Auto) 1.6 x10^3/uL (1.0-4.8) Monocytes # (Auto) 0.9 x10^3/uL (0.0-1.1) Eosinophils # (Auto) 0.1 x10^3/uL (0.0-0.7) Basophils # (Auto) 0.0 x10^3/uL (0.0-0.2) Activated Partial Thromboplast Time 33 SEC (24-38) Sodium Level 137 mmol/L (136-145) Potassium Level 3.6 mmol/L (3.5-5.1) Chloride Level 97 mmol/L (98-107) Carbon Dioxide Level 24 mmol/L (21-32) Anion Gap 16 (6-14) Blood Urea Nitrogen 20 mg/dL (8-26) Creatinine 1.0 mg/dL (0.7-1.3) Estimated GFR (Cockcroft-Gault) 89.9 BUN/Creatinine Ratio 20 (6-20) Glucose Level 273 mg/dL (70-99) Calcium Level 9.7 mg/dL (8.5-10.1) Total Bilirubin 2.6 mg/dL (0.2-1.0) Aspartate Amino Transf (AST/SGOT) 26 U/L (15-37) Alanine Aminotransferase (ALT/SGPT) 29 U/L (16-63) Alkaline Phosphatase 91 U/L (46-116) Creatine Kinase 44 U/L (39-308) Troponin I Quantitative < 0.017 ng/mL (0.000-0.055) Total Protein 7.9 g/dL (6.4-8.2) Albumin 4.1 g/dL (3.4-5.0) Albumin/Globulin Ratio 1.1 (1.0-1.7) Lipase 54 U/L (73-393) Urine Collection Type Void Urine Color Yellow Urine Clarity Clear Urine pH 5.5 Urine Specific [place] >=1.030 Urine Protein Negative mg/dL (NEG-TRACE) Urine Glucose (UA) >=1000 mg/dL (NEG) Urine Ketones (Stick) 15 mg/dL (NEG) Urine Blood Negative (NEG) Urine Nitrite Negative (NEG) Urine Bilirubin Negative (NEG) Urine Urobilinogen Dipstick 1.0 mg/dL (0.2 mg/dL) Urine Leukocyte Esterase Negative (NEG) Urine RBC 0 /HPF (0-2) Urine WBC 0 /HPF (0-4) Urine Squamous Epithelial Cells None /LPF Urine Bacteria 0 /HPF (0-FEW) Urine Mucus Marked /LPF Glucose (Fingerstick) 233 mg/dL (70-99) 268 mg/dL (70-99) Test 09/04/18 23:05 09/05/18 07:11 09/05/18 09:00 Glucose (Fingerstick) 271 mg/dL (70-99) 204 mg/dL (70-99) White Blood Count 13.4 x10^3/uL (4.0-11.0) Red Blood Count 4.57 x10^6/uL (4.30-5.70) Hemoglobin 13.8 g/dL (13.0-17.5) Hematocrit 40.4 % (39.0-53.0) Mean Corpuscular Volume 88 fL (79-100) Mean Corpuscular Hemoglobin 30 pg (25-35) Mean Corpuscular Hemoglobin Concent 34 g/dL (31-37) Red Cell Distribution Width 12.8 % (11.5-14.5) Platelet Count 181 x10^3/uL (140-400) Neutrophils (%) (Auto) 82 % (31-73) Lymphocytes (%) (Auto) 11 % (24-48) Monocytes (%) (Auto) 7 % (0-9) Eosinophils (%) (Auto) 0 % (0-3) Basophils (%) (Auto) 0 % (0-3) Neutrophils # (Auto) 11.1 x10^3uL (1.8-7.7) Lymphocytes # (Auto) 1.4 x10^3/uL (1.0-4.8) Monocytes # (Auto) 0.9 x10^3/uL (0.0-1.1) Eosinophils # (Auto) 0.0 x10^3/uL (0.0-0.7) Basophils # (Auto) 0.0 x10^3/uL (0.0-0.2) Sodium Level 139 mmol/L (136-145) Potassium Level 3.1 mmol/L (3.5-5.1) Chloride Level 103 mmol/L (98-107) Carbon Dioxide Level 23 mmol/L (21-32) Anion Gap 13 (6-14) Blood Urea Nitrogen 13 mg/dL (8-26) Creatinine 1.0 mg/dL (0.7-1.3) Estimated GFR (Cockcroft-Gault) 89.9 Glucose Level 229 mg/dL (70-99) Calcium Level 8.6 mg/dL (8.5-10.1) Laboratory Tests Test 09/04/18 10:07 09/04/18 13:15 09/04/18 15:48 09/04/18 18:12 White Blood Count 10.1 x10^3/uL (4.0-11.0) Red Blood Count 5.40 x10^6/uL (4.30-5.70) Hemoglobin 16.8 g/dL (13.0-17.5) Hematocrit 47.5 % (39.0-53.0) Mean Corpuscular Volume 88 fL (79-100) Mean Corpuscular Hemoglobin 31 pg (25-35) Mean Corpuscular Hemoglobin Concent 35 g/dL (31-37) Red Cell Distribution Width 13.1 % (11.5-14.5) Platelet Count 211 x10^3/uL (140-400) Neutrophils (%) (Auto) 74 % (31-73) Lymphocytes (%) (Auto) 16 % (24-48) Monocytes (%) (Auto) 9 % (0-9) Eosinophils (%) (Auto) 1 % (0-3) Basophils (%) (Auto) 0 % (0-3) Neutrophils # (Auto) 7.5 x10^3uL (1.8-7.7) Lymphocytes # (Auto) 1.6 x10^3/uL (1.0-4.8) Monocytes # (Auto) 0.9 x10^3/uL (0.0-1.1) Eosinophils # (Auto) 0.1 x10^3/uL (0.0-0.7) Basophils # (Auto) 0.0 x10^3/uL (0.0-0.2) Activated Partial Thromboplast Time 33 SEC (24-38) Sodium Level 137 mmol/L (136-145) Potassium Level 3.6 mmol/L (3.5-5.1) Chloride Level 97 mmol/L (98-107) Carbon Dioxide Level 24 mmol/L (21-32) Anion Gap 16 (6-14) Blood Urea Nitrogen 20 mg/dL (8-26) Creatinine 1.0 mg/dL (0.7-1.3) Estimated GFR (Cockcroft-Gault) 89.9 BUN/Creatinine Ratio 20 (6-20) Glucose Level 273 mg/dL (70-99) Calcium Level 9.7 mg/dL (8.5-10.1) Total Bilirubin 2.6 mg/dL (0.2-1.0) Aspartate Amino Transf (AST/SGOT) 26 U/L (15-37) Alanine Aminotransferase (ALT/SGPT) 29 U/L (16-63) Alkaline Phosphatase 91 U/L (46-116) Creatine Kinase 44 U/L (39-308) Troponin I Quantitative < 0.017 ng/mL (0.000-0.055) Total Protein 7.9 g/dL (6.4-8.2) Albumin 4.1 g/dL (3.4-5.0) Albumin/Globulin Ratio 1.1 (1.0-1.7) Lipase 54 U/L (73-393) Urine Collection Type Void Urine Color Yellow Urine Clarity Clear Urine pH 5.5 Urine Specific [place] >=1.030 Urine Protein Negative mg/dL (NEG-TRACE) Urine Glucose (UA) >=1000 mg/dL (NEG) Urine Ketones (Stick) 15 mg/dL (NEG) Urine Blood Negative (NEG) Urine Nitrite Negative (NEG) Urine Bilirubin Negative (NEG) Urine Urobilinogen Dipstick 1.0 mg/dL (0.2 mg/dL) Urine Leukocyte Esterase Negative (NEG) Urine RBC 0 /HPF (0-2) Urine WBC 0 /HPF (0-4) Urine Squamous Epithelial Cells None /LPF Urine Bacteria 0 /HPF (0-FEW) Urine Mucus Marked /LPF Glucose (Fingerstick) 233 mg/dL (70-99) 268 mg/dL (70-99) Test 09/04/18 23:05 09/05/18 07:11 09/05/18 09:00 Glucose (Fingerstick) 271 mg/dL (70-99) 204 mg/dL (70-99) White Blood Count 13.4 x10^3/uL (4.0-11.0) Red Blood Count 4.57 x10^6/uL (4.30-5.70) Hemoglobin 13.8 g/dL (13.0-17.5) Hematocrit 40.4 % (39.0-53.0) Mean Corpuscular Volume 88 fL (79-100) Mean Corpuscular Hemoglobin 30 pg (25-35) Mean Corpuscular Hemoglobin Concent 34 g/dL (31-37) Red Cell Distribution Width 12.8 % (11.5-14.5) Platelet Count 181 x10^3/uL (140-400) Neutrophils (%) (Auto) 82 % (31-73) Lymphocytes (%) (Auto) 11 % (24-48) Monocytes (%) (Auto) 7 % (0-9) Eosinophils (%) (Auto) 0 % (0-3) Basophils (%) (Auto) 0 % (0-3) Neutrophils # (Auto) 11.1 x10^3uL (1.8-7.7) Lymphocytes # (Auto) 1.4 x10^3/uL (1.0-4.8) Monocytes # (Auto) 0.9 x10^3/uL (0.0-1.1) Eosinophils # (Auto) 0.0 x10^3/uL (0.0-0.7) Basophils # (Auto) 0.0 x10^3/uL (0.0-0.2) Sodium Level 139 mmol/L (136-145) Potassium Level 3.1 mmol/L (3.5-5.1) Chloride Level 103 mmol/L (98-107) Carbon Dioxide Level 23 mmol/L (21-32) Anion Gap 13 (6-14) Blood Urea Nitrogen 13 mg/dL (8-26) Creatinine 1.0 mg/dL (0.7-1.3) Estimated GFR (Cockcroft-Gault) 89.9 Glucose Level 229 mg/dL (70-99) Calcium Level 8.6 mg/dL (8.5-10.1) total bili PND Problem List Problems Medical Problems: (1) Biliary colic Status: Acute (2) Gallbladder sludge Status: Acute (3) Hyperglycemia Status: Acute (4) Serum total bilirubin elevated Status: Acute Assessment/Plan POD 1 gangrenous cholecystitis check labs advance diet continue abx CJ LLOYD MD September 05, 2018 10:01
[2018-09-05 10:40] VITALS: BP 95/51
--- NOTE | 2018-09-05 11:10 | EKG ---
[facility] [address] [place] [id number] Test Date: 2018-09-04 Test Time: 10:37:29 Pat Name: JOMAR MAYES Department: Room: 2 Gender: M [place] Gauger: : 1950 Requested By: GUERRERO BOO Order Number: [id number] Reading MD: Ramon Koehler Measurements Intervals [place] Rate: 90 P: -26 ND: 134 QRS: 36 QRSD: 88 T: 15 QT: 422 QTc: 521 Interpretive Statements SINUS RHYTHM PROLONGED QT Electronically Signed On 09-24-2018 12:41:28 CDT by Ramon Koehler
--- NOTE | 2018-09-05 12:22 | PDOC ---
PROGRESS NOTES Chief Complaint Chief Complaint Gangrenous cholecystitis status post cholecystectomy History off hypertension History of diabetes mellitus type 2 Morbid obesity with a BMI of 40 Hypokalemia Reactive leukocytosis Plan Continue with postsurgical care Encourage incentive spirometry to reduce risk for atelectasis and postsurgical fever Reassess in the a.m. Pain management Encourage ambulation Further recommendations based on the clinical course DVT prophylaxis SCD and teds resume heparin products once okayed by surgery History of Present Illness History of Present Illness No acute events reported overnight. The patient denies any abdominal discomfort at the present time he has been passing gas and had a bowel movement. No concerns voiced during my visit in good spirits hoping to be dismissed soon Vitals Vitals Vital Signs Date Time Temp Pulse Resp B/P (MAP) Pulse Ox O2 Delivery O2 Flow Rate FiO2 09/05/18 10:40 98.1 70 20 95/51 (66) 97 Room Air 98.1 09/04/18 17:57 10 Physical Exam General: Alert, No acute distress Heart: Regular rate Abdomen: Normal bowel sounds, Soft, Other (small amount of PHILLIP output with bile tinge) Extremities: No clubbing Skin: Other Labs LABS Laboratory Tests Test 09/04/18 13:15 09/04/18 15:48 09/04/18 18:12 09/04/18 23:05 Urine Collection Type Void Urine Color Yellow Urine Clarity Clear Urine pH 5.5 Urine Specific [place] >=1.030 Urine Protein Negative mg/dL (NEG-TRACE) Urine Glucose (UA) >=1000 mg/dL (NEG) Urine Ketones (Stick) 15 mg/dL (NEG) Urine Blood Negative (NEG) Urine Nitrite Negative (NEG) Urine Bilirubin Negative (NEG) Urine Urobilinogen Dipstick 1.0 mg/dL (0.2 mg/dL) Urine Leukocyte Esterase Negative (NEG) Urine RBC 0 /HPF (0-2) Urine WBC 0 /HPF (0-4) Urine Squamous Epithelial Cells None /LPF Urine Bacteria 0 /HPF (0-FEW) Urine Mucus Marked /LPF Glucose (Fingerstick) 233 mg/dL (70-99) 268 mg/dL (70-99) 271 mg/dL (70-99) Test 09/05/18 07:11 09/05/18 09:00 09/05/18 11:47 Glucose (Fingerstick) 204 mg/dL (70-99) 188 mg/dL (70-99) White Blood Count 13.4 x10^3/uL (4.0-11.0) Red Blood Count 4.57 x10^6/uL (4.30-5.70) Hemoglobin 13.8 g/dL (13.0-17.5) Hematocrit 40.4 % (39.0-53.0) Mean Corpuscular Volume 88 fL (79-100) Mean Corpuscular Hemoglobin 30 pg (25-35) Mean Corpuscular Hemoglobin Concent 34 g/dL (31-37) Red Cell Distribution Width 12.8 % (11.5-14.5) Platelet Count 181 x10^3/uL (140-400) Neutrophils (%) (Auto) 82 % (31-73) Lymphocytes (%) (Auto) 11 % (24-48) Monocytes (%) (Auto) 7 % (0-9) Eosinophils (%) (Auto) 0 % (0-3) Basophils (%) (Auto) 0 % (0-3) Neutrophils # (Auto) 11.1 x10^3uL (1.8-7.7) Lymphocytes # (Auto) 1.4 x10^3/uL (1.0-4.8) Monocytes # (Auto) 0.9 x10^3/uL (0.0-1.1) Eosinophils # (Auto) 0.0 x10^3/uL (0.0-0.7) Basophils # (Auto) 0.0 x10^3/uL (0.0-0.2) Sodium Level 139 mmol/L (136-145) Potassium Level 3.1 mmol/L (3.5-5.1) Chloride Level 103 mmol/L (98-107) Carbon Dioxide Level 23 mmol/L (21-32) Anion Gap 13 (6-14) Blood Urea Nitrogen 13 mg/dL (8-26) Creatinine 1.0 mg/dL (0.7-1.3) Estimated GFR (Cockcroft-Gault) 89.9 Glucose Level 229 mg/dL (70-99) Calcium Level 8.6 mg/dL (8.5-10.1) Total Bilirubin 2.1 mg/dL (0.2-1.0) Review of Systems Review of Systems Pertinent as per history of present illness otherwise 14 point review of system is negative Assessment and Plan Assessmemt and Plan Problems Medical Problems: (1) Biliary colic Status: Acute (2) Gallbladder sludge Status: Acute (3) Hyperglycemia Status: Acute (4) Serum total bilirubin elevated Status: Acute Comment Review of Relevant I have reviewed the following items maryann (where applicable) has been applied. Labs Laboratory Tests Test 09/04/18 10:07 09/04/18 13:15 09/04/18 15:48 09/04/18 18:12 White Blood Count 10.1 x10^3/uL (4.0-11.0) Red Blood Count 5.40 x10^6/uL (4.30-5.70) Hemoglobin 16.8 g/dL (13.0-17.5) Hematocrit 47.5 % (39.0-53.0) Mean Corpuscular Volume 88 fL (79-100) Mean Corpuscular Hemoglobin 31 pg (25-35) Mean Corpuscular Hemoglobin Concent 35 g/dL (31-37) Red Cell Distribution Width 13.1 % (11.5-14.5) Platelet Count 211 x10^3/uL (140-400) Neutrophils (%) (Auto) 74 % (31-73) Lymphocytes (%) (Auto) 16 % (24-48) Monocytes (%) (Auto) 9 % (0-9) Eosinophils (%) (Auto) 1 % (0-3) Basophils (%) (Auto) 0 % (0-3) Neutrophils # (Auto) 7.5 x10^3uL (1.8-7.7) Lymphocytes # (Auto) 1.6 x10^3/uL (1.0-4.8) Monocytes # (Auto) 0.9 x10^3/uL (0.0-1.1) Eosinophils # (Auto) 0.1 x10^3/uL (0.0-0.7) Basophils # (Auto) 0.0 x10^3/uL (0.0-0.2) Activated Partial Thromboplast Time 33 SEC (24-38) Sodium Level 137 mmol/L (136-145) Potassium Level 3.6 mmol/L (3.5-5.1) Chloride Level 97 mmol/L (98-107) Carbon Dioxide Level 24 mmol/L (21-32) Anion Gap 16 (6-14) Blood Urea Nitrogen 20 mg/dL (8-26) Creatinine 1.0 mg/dL (0.7-1.3) Estimated GFR (Cockcroft-Gault) 89.9 BUN/Creatinine Ratio 20 (6-20) Glucose Level 273 mg/dL (70-99) Calcium Level 9.7 mg/dL (8.5-10.1) Total Bilirubin 2.6 mg/dL (0.2-1.0) Aspartate Amino Transf (AST/SGOT) 26 U/L (15-37) Alanine Aminotransferase (ALT/SGPT) 29 U/L (16-63) Alkaline Phosphatase 91 U/L (46-116) Creatine Kinase 44 U/L (39-308) Troponin I Quantitative < 0.017 ng/mL (0.000-0.055) Total Protein 7.9 g/dL (6.4-8.2) Albumin 4.1 g/dL (3.4-5.0) Albumin/Globulin Ratio 1.1 (1.0-1.7) Lipase 54 U/L (73-393) Urine Collection Type Void Urine Color Yellow Urine Clarity Clear Urine pH 5.5 Urine Specific [place] >=1.030 Urine Protein Negative mg/dL (NEG-TRACE) Urine Glucose (UA) >=1000 mg/dL (NEG) Urine Ketones (Stick) 15 mg/dL (NEG) Urine Blood Negative (NEG) Urine Nitrite Negative (NEG) Urine Bilirubin Negative (NEG) Urine Urobilinogen Dipstick 1.0 mg/dL (0.2 mg/dL) Urine Leukocyte Esterase Negative (NEG) Urine RBC 0 /HPF (0-2) Urine WBC 0 /HPF (0-4) Urine Squamous Epithelial Cells None /LPF Urine Bacteria 0 /HPF (0-FEW) Urine Mucus Marked /LPF Glucose (Fingerstick) 233 mg/dL (70-99) 268 mg/dL (70-99) Test 09/04/18 23:05 09/05/18 07:11 09/05/18 09:00 09/05/18 11:47 Glucose (Fingerstick) 271 mg/dL (70-99) 204 mg/dL (70-99) 188 mg/dL (70-99) White Blood Count 13.4 x10^3/uL (4.0-11.0) Red Blood Count 4.57 x10^6/uL (4.30-5.70) Hemoglobin 13.8 g/dL (13.0-17.5) Hematocrit 40.4 % (39.0-53.0) Mean Corpuscular Volume 88 fL (79-100) Mean Corpuscular Hemoglobin 30 pg (25-35) Mean Corpuscular Hemoglobin Concent 34 g/dL (31-37) Red Cell Distribution Width 12.8 % (11.5-14.5) Platelet Count 181 x10^3/uL (140-400) Neutrophils (%) (Auto) 82 % (31-73) Lymphocytes (%) (Auto) 11 % (24-48) Monocytes (%) (Auto) 7 % (0-9) Eosinophils (%) (Auto) 0 % (0-3) Basophils (%) (Auto) 0 % (0-3) Neutrophils # (Auto) 11.1 x10^3uL (1.8-7.7) Lymphocytes # (Auto) 1.4 x10^3/uL (1.0-4.8) Monocytes # (Auto) 0.9 x10^3/uL (0.0-1.1) Eosinophils # (Auto) 0.0 x10^3/uL (0.0-0.7) Basophils # (Auto) 0.0 x10^3/uL (0.0-0.2) Sodium Level 139 mmol/L (136-145) Potassium Level 3.1 mmol/L (3.5-5.1) Chloride Level 103 mmol/L (98-107) Carbon Dioxide Level 23 mmol/L (21-32) Anion Gap 13 (6-14) Blood Urea Nitrogen 13 mg/dL (8-26) Creatinine 1.0 mg/dL (0.7-1.3) Estimated GFR (Cockcroft-Gault) 89.9 Glucose Level 229 mg/dL (70-99) Calcium Level 8.6 mg/dL (8.5-10.1) Total Bilirubin 2.1 mg/dL (0.2-1.0) Laboratory Tests Test 09/04/18 13:15 09/04/18 15:48 09/04/18 18:12 09/04/18 23:05 Urine Collection Type Void Urine Color Yellow Urine Clarity Clear Urine pH 5.5 Urine Specific [place] >=1.030 Urine Protein Negative mg/dL (NEG-TRACE) Urine Glucose (UA) >=1000 mg/dL (NEG) Urine Ketones (Stick) 15 mg/dL (NEG) Urine Blood Negative (NEG) Urine Nitrite Negative (NEG) Urine Bilirubin Negative (NEG) Urine Urobilinogen Dipstick 1.0 mg/dL (0.2 mg/dL) Urine Leukocyte Esterase Negative (NEG) Urine RBC 0 /HPF (0-2) Urine WBC 0 /HPF (0-4) Urine Squamous Epithelial Cells None /LPF Urine Bacteria 0 /HPF (0-FEW) Urine Mucus Marked /LPF Glucose (Fingerstick) 233 mg/dL (70-99) 268 mg/dL (70-99) 271 mg/dL (70-99) Test 09/05/18 07:11 09/05/18 09:00 09/05/18 11:47 Glucose (Fingerstick) 204 mg/dL (70-99) 188 mg/dL (70-99) White Blood Count 13.4 x10^3/uL (4.0-11.0) Red Blood Count 4.57 x10^6/uL (4.30-5.70) Hemoglobin 13.8 g/dL (13.0-17.5) Hematocrit 40.4 % (39.0-53.0) Mean Corpuscular Volume 88 fL (79-100) Mean Corpuscular Hemoglobin 30 pg (25-35) Mean Corpuscular Hemoglobin Concent 34 g/dL (31-37) Red Cell Distribution Width 12.8 % (11.5-14.5) Platelet Count 181 x10^3/uL (140-400) Neutrophils (%) (Auto) 82 % (31-73) Lymphocytes (%) (Auto) 11 % (24-48) Monocytes (%) (Auto) 7 % (0-9) Eosinophils (%) (Auto) 0 % (0-3) Basophils (%) (Auto) 0 % (0-3) Neutrophils # (Auto) 11.1 x10^3uL (1.8-7.7) Lymphocytes # (Auto) 1.4 x10^3/uL (1.0-4.8) Monocytes # (Auto) 0.9 x10^3/uL (0.0-1.1) Eosinophils # (Auto) 0.0 x10^3/uL (0.0-0.7) Basophils # (Auto) 0.0 x10^3/uL (0.0-0.2) Sodium Level 139 mmol/L (136-145) Potassium Level 3.1 mmol/L (3.5-5.1) Chloride Level 103 mmol/L (98-107) Carbon Dioxide Level 23 mmol/L (21-32) Anion Gap 13 (6-14) Blood Urea Nitrogen 13 mg/dL (8-26) Creatinine 1.0 mg/dL (0.7-1.3) Estimated GFR (Cockcroft-Gault) 89.9 Glucose Level 229 mg/dL (70-99) Calcium Level 8.6 mg/dL (8.5-10.1) Total Bilirubin 2.1 mg/dL (0.2-1.0) Medications Current Medications Fentanyl Citrate (Fentanyl 2ml Vial) 50 mcg 1X ONCE IV Last administered on 09/04/18 10:46; Start 09/04/18 at 10:30; Stop 09/04/18 at 10:32; Status DC Ondansetron HCl (Zofran) 4 mg 1X ONCE IV Last administered on 09/04/18 10:46; Start 09/04/18 at 10:30; Stop 09/04/18 at 10:32; Status DC Hydromorphone HCl (Dilaudid) 1 mg 1X ONCE IV Last administered on 09/04/18 12:59; Start 09/04/18 at 12:45; Stop 09/04/18 at 12:46; Status DC Iohexol (Omnipaque 300 Mg/ml) 100 ml 1X ONCE IV Last administered on 09/04/18at 12:50; Start 09/04/18 at 12:30; Stop 09/04/18 at 12:31; Status DC Sodium Chloride 1,000 ml @ 150 mls/hr Q6H40M IV Last administered on 09/05/18 08:46; Start 09/04/18 at 12:25; Stop 09/05/18 at 12:24 Info (CONTRAST GIVEN -- Rx MONITORING) 1 each PRN DAILY PRN MC SEE COMMENTS; Start 09/04/18 at 12:30; Stop 09/06/18 at 12:29 Cefazolin Sodium 3 gm/Dextrose 100 ml @ 200 mls/hr 1X PREOP PRN IV protocol; Start 09/04/18 at 15:44; Stop 09/05/18 at 10:29; Status DC Ondansetron HCl (Zofran) 4 mg PRN Q6HRS PRN IV NAUSEA/VOMITING; Start 09/04/18 at 15:00; Stop 09/05/18 at 14:59 Fentanyl Citrate (Fentanyl 2ml Vial) 25 mcg PRN Q5MIN PRN IV MILD PAIN 1-3; Start 09/04/18 at 15:00; Stop 09/05/18 at 14:59 Fentanyl Citrate (Fentanyl 2ml Vial) 50 mcg PRN Q5MIN PRN IV MODERATE TO SEVERE PAIN; Start 09/04/18 at 15:00; Stop 09/05/18 at 14:59 Morphine Sulfate (Morphine Sulfate) 1 mg PRN Q10MIN PRN IV SEVERE PAIN 7-10; Start 09/04/18 at 15:00; Stop 09/05/18 at 14:59 Ringer's Solution 1,000 ml @ 30 mls/hr Q24H IV ; Start 09/04/18 at 14:47; Stop 09/05/18 at 02:46; Status DC Lidocaine HCl (Xylocaine-Mpf 1% 2ml Vial) 2 ml PRN 1X PRN ID PRIOR TO IV START; Start 09/04/18 at 15:00; Stop 09/05/18 at 14:59 Hydromorphone HCl (Dilaudid) 0.5 mg PRN Q10MIN PRN IV SEV PAIN, Second choice; Start 09/04/18 at 15:00; Stop 09/05/18 at 14:59 Prochlorperazine Edisylate (Compazine) 5 mg PACU PRN PRN IV NAUSEA, MRX1; Start 09/04/18 at 15:00; Stop 09/05/18 at 14:59 Propofol 20 ml @ As Directed STK-MED ONCE IV ; Start 09/04/18 at 15:29; Stop 09/04/18 at 15:30; Status DC Lidocaine HCl (Lidocaine Pf 2% Vial) 5 ml STK-MED ONCE .ROUTE ; Start 09/04/18 at 15:29; Stop 09/04/18 at 15:30; Status DC Dexamethasone Sodium Phosphate (Decadron) 4 mg STK-MED ONCE .ROUTE ; Start 09/04/18 at 15:30; Stop 09/04/18 at 15:31; Status DC Ondansetron HCl (Zofran) 4 mg STK-MED ONCE .ROUTE ; Start 09/04/18 at 15:30; Stop 09/04/18 at 15:31; Status DC Dexamethasone Sodium Phosphate (Decadron) 4 mg STK-MED ONCE .ROUTE ; Start 09/04/18 at 15:30; Stop 09/04/18 at 15:31; Status DC Succinylcholine Chloride (Anectine) 200 mg STK-MED ONCE .ROUTE ; Start 09/04/18 at 15:30; Stop 09/04/18 at 15:31; Status DC Rocuronium [place] (Zemuron) 50 mg STK-MED ONCE .ROUTE ; Start 09/04/18 at 15:31; Stop 09/04/18 at 15:32; Status DC Fentanyl Citrate (Fentanyl 2ml Vial) 100 mcg STK-MED ONCE .ROUTE ; Start 09/04/18 at 15:31; Stop 09/04/18 at 15:32; Status DC Bupivacaine HCl/ Epinephrine Bitart (Sensorcain-Mpf Epi 0.5%-[id number]) 30 ml STK-MED ONCE .ROUTE Last administered on 09/04/18at 17:03; Start 09/04/18 at 15:18; Stop 09/04/18 at 16:18; Status DC Glucagon (Glucagen) 1 mg STK-MED ONCE .ROUTE ; Start 09/04/18 at 15:18; Stop 09/04/18 at 16:18; Status DC Iohexol (Omnipaque 300 Mg/ml) 50 ml STK-MED ONCE .ROUTE Last administered on 09/04/18at 17:03; Start 09/04/18 at 15:18; Stop 09/04/18 at 16:18; Status DC Cellulose (Surgicel Hemostat 4x8) 1 each STK-MED ONCE .ROUTE Last administered on 09/04/18at 17:03; Start 09/04/18 at 15:18; Stop 09/04/18 at 16:18; Status DC Fentanyl Citrate (Fentanyl 2ml Vial) 100 mcg STK-MED ONCE .ROUTE ; Start at 17:03; Stop 09/04/18 at 17:04; Status DC Neostigmine Methylsulfate (Neostigmine Methylsulfate) 5 mg STK-MED ONCE .ROUTE ; Start 09/04/18 at 17:34; Stop 09/04/18 at 17:35; Status DC Glycopyrrolate (Robinul) 1 mg STK-MED ONCE .ROUTE ; Start 09/04/18 at 17:35; Stop 09/04/18 at 17:36; Status DC Insulin Human Regular (HumuLIN R VIAL) 8 unit PACU PRN SQ ; Start 09/04/18 at 18:15; Status Cancel Insulin Human Lispro (HumaLOG VIAL) 8 unit 1X PACU SQ ; Start 09/04/18 at 18:30; Stop 09/04/18 at 18:30; Status DC Insulin Human Lispro (HumaLOG VIAL) 8 unit 1X ONCE SQ Last administered on 09/04/18at 18:31; Start 09/04/18 at 18:30; Stop 09/04/18 at 18:31; Status DC Piperacillin Sod/ Tazobactam Sod 4.5 gm/Sodium Chloride 100 ml @ 200 mls/hr Q6HRS IV Last administered on 09/05/18at 05:47; Start 09/04/18 at 19:00 Hydromorphone HCl (Dilaudid) 1 mg PRN Q3HRS PRN IV pain Last administered on 09/05/18at 05:47; Start 09/04/18 at 21:00 Atorvastatin Calcium (Lipitor) 40 mg QHS PO ; Start 09/05/18 at 21:00 Metoprolol Succinate (Toprol Xl) 100 mg DAILY PO Last administered on 09/05/18at 08:46; Start 09/05/18 at 09:00 Triamterene/HCTZ (Maxzide 37.5/ 25mg) 1 tab DAILY PO Last administered on 09/05/18at 08:46; Start 09/05/18 at 09:00 Aspirin (Ecotrin) 325 mg DAILYWBKFT PO Last administered on 09/05/18at 08:46; Start 09/05/18 at 09:00 Metformin HCl (Glucophage) 1,000 mg BIDWMEALS PO ; Start 09/06/18 at 17:00 Lactobacillus Rhamnosus (Culturelle) 1 cap BID PO ; Start 09/05/18 at 11:00 Vitals/I & O Vital Sign - Last 24 Hours 09/04/18 09/04/18 09/04/18 09/04/18 12:30 12:59 14:00 15:40 Temp 97.7 98.6 97.7 98.6 Pulse 94 100 107 Resp 18 18 18 16 B/P (MAP) 160/80 (106) 149/79 Pulse Ox 94 96 O2 Delivery Room Air Room Air Room Air 09/04/18 09/04/18 09/04/18 09/04/18 17:57 18:12 18:27 18:52 Temp 99.2 98.1 97.4 99.2 98.1 97.4 Pulse 93 99 98 96 Resp 16 16 16 18 B/P (MAP) 145/73 144/68 156/56 151/80 (103) Pulse Ox 98 93 93 93 O2 Delivery Simple Mask Room Air Room Air Room Air O2 Flow Rate 10 09/04/18 09/04/18 09/04/18 09/04/18 19:15 19:27 19:43 19:45 Pulse 97 90 100 Resp 20 20 20 B/P (MAP) 148/77 (100) 139/68 (91) 143/69 (93) Pulse Ox 91 96 92 O2 Delivery Room Air Room Air Room Air Room Air 09/04/18 09/04/18 09/04/18 09/04/18 20:15 20:45 21:15 21:53 Pulse 96 94 91 84 Resp 20 20 18 20 B/P (MAP) 140/71 (94) 125/76 (92) 124/68 (86) 129/68 (88) Pulse Ox 91 93 95 93 O2 Delivery Room Air Room Air Room Air Room Air 09/04/18 09/05/18 09/05/18 09/05/18 23:30 03:07 05:47 06:20 Temp 98.2 98.2 98.2 98.2 Pulse 92 79 Resp 19 18 20 18 B/P (MAP) 130/67 (88) 120/68 (85) Pulse Ox 94 94 O2 Delivery Room Air Room Air Room Air Room Air 09/05/18 09/05/18 09/05/18 09/05/18 07:02 08:23 08:46 10:40 Temp 98.0 98.1 98.0 98.1 Pulse 69 69 70 Resp 18 20 B/P (MAP) 108/60 (76) 108/60 95/51 (66) Pulse Ox 98 97 O2 Delivery Room Air Room Air Room Air Intake and Output 09/04/18 09/04/18 09/05/18 14:59 22:59 06:59 Intake Total 0 ml 1510 ml 2572 ml Output Total 480 ml Balance 0 ml 1510 ml 2092 ml LAINE FONTAINE MD September 05, 2018 12:22
[2018-09-05] MEDS: LACTOBACILLUS RHAMNOSUS GG 1 CAPSULE. PO SCH ×2 (13:13→22:14)
[2018-09-05 15:02] VITALS: BP 135/76
[2018-09-05 19:33] VITALS: BP 122/58
[2018-09-05] MEDS: ATORVASTATIN CALCIUM 40 MG TABLET. PO SCH (22:14)
[2018-09-05 23:46] VITALS: BP 105/52
[2018-09-06 03:32] VITALS: BP 104/61
[2018-09-06] MEDS: PIPERACILLIN/TAZOBACTAM 4.5 GM in IV NORMAL SALINE 100ML 100 ML IV SCH ×4 (06:23→23:02)
[2018-09-06 07:00] VITALS: BP 139/72
[2018-09-06] MEDS ORDERED: ONDANSETRON PF 4 MG/2 ML VIAL. IV PRN (08:00)
[2018-09-06] MEDS ORDERED: oxyCODONE/APAP 5/325 1 TAB TABLET PO PRN (08:00)
[2018-09-06] MEDS ORDERED: oxyCODONE/APAP 10/325 1 TAB TABLET PO PRN (08:00)
[2018-09-06] MEDS: ASPIRIN ENTERIC COATED 325 MG TABLET.DR. PO SCH (08:31)
[2018-09-06] MEDS: TRIAMTERENE/HCTZ 37.5/25MG TABLET. PO SCH (08:31)
[2018-09-06] MEDS: LACTOBACILLUS RHAMNOSUS GG 1 CAPSULE. PO SCH ×2 (08:31→21:03)
[2018-09-06] MEDS: METOPROLOL SUCC 24HR ER 100 MG TAB.ER.24H. PO SCH (08:31)
[2018-09-06 08:48] LABS: BASO % 0 % (0-3); EOS # 0.1 x10^3/uL (0.0-0.7); EOS % 1 % (0-3); HEMATOCRIT 40.3 % (39.0-53.0); LYMPH # 2.8 x10^3/uL (1.0-4.8); LYMPH % 25 % (24-48); MEAN CORPUSCULAR HEMOGLOBIN 31 pg (25-35); MEAN CORPUSCULAR HGB CONC 35 g/dL (31-37); MEAN CORPUSCULAR VOLUME 88 fL (79-100); MONO # 0.9 x10^3/uL (0.0-1.1); MONO % 8 % (0-9); NEUT # 7.5 x10^3uL (1.8-7.7); NEUT % 66 % (31-73); PLATELET COUNT 169 x10^3/uL (140-400); RED BLOOD COUNT 4.56 x10^6/uL (4.30-5.70); RED CELL DISTRIBUTION WIDTH 13.1 % (11.5-14.5); WHITE BLOOD COUNT 11.4 x10^3/uL (4.0-11.0)
--- NOTE | 2018-09-06 08:52 | PDOC ---
SURGICAL PROGRESS NOTE Subjective doing well would like more to eat than liquids Vital Signs Vital Signs Date Time Temp Pulse Resp B/P (MAP) Pulse Ox O2 Delivery O2 Flow Rate FiO2 09/06/18 08:31 75 139/72 09/06/18 07:00 98.5 20 94 Room Air 98.5 I&O Intake and Output 09/06/18 07:00 Intake Total 1950 ml Output Total 750 ml Balance 1200 ml Intake Oral 1950 ml Output Urine Total 750 ml # Voids 5 General: Alert, Oriented X3, Cooperative, No acute distress Abdomen: Soft, Other (ND, drain serosang) Labs Laboratory Tests Test 09/04/18 10:07 09/04/18 13:15 09/04/18 15:48 09/04/18 18:12 White Blood Count 10.1 x10^3/uL (4.0-11.0) Red Blood Count 5.40 x10^6/uL (4.30-5.70) Hemoglobin 16.8 g/dL (13.0-17.5) Hematocrit 47.5 % (39.0-53.0) Mean Corpuscular Volume 88 fL (79-100) Mean Corpuscular Hemoglobin 31 pg (25-35) Mean Corpuscular Hemoglobin Concent 35 g/dL (31-37) Red Cell Distribution Width 13.1 % (11.5-14.5) Platelet Count 211 x10^3/uL (140-400) Neutrophils (%) (Auto) 74 % (31-73) Lymphocytes (%) (Auto) 16 % (24-48) Monocytes (%) (Auto) 9 % (0-9) Eosinophils (%) (Auto) 1 % (0-3) Basophils (%) (Auto) 0 % (0-3) Neutrophils # (Auto) 7.5 x10^3uL (1.8-7.7) Lymphocytes # (Auto) 1.6 x10^3/uL (1.0-4.8) Monocytes # (Auto) 0.9 x10^3/uL (0.0-1.1) Eosinophils # (Auto) 0.1 x10^3/uL (0.0-0.7) Basophils # (Auto) 0.0 x10^3/uL (0.0-0.2) Activated Partial Thromboplast Time 33 SEC (24-38) Sodium Level 137 mmol/L (136-145) Potassium Level 3.6 mmol/L (3.5-5.1) Chloride Level 97 mmol/L (98-107) Carbon Dioxide Level 24 mmol/L (21-32) Anion Gap 16 (6-14) Blood Urea Nitrogen 20 mg/dL (8-26) Creatinine 1.0 mg/dL (0.7-1.3) Estimated GFR (Cockcroft-Gault) 89.9 BUN/Creatinine Ratio 20 (6-20) Glucose Level 273 mg/dL (70-99) Calcium Level 9.7 mg/dL (8.5-10.1) Total Bilirubin 2.6 mg/dL (0.2-1.0) Aspartate Amino Transf (AST/SGOT) 26 U/L (15-37) Alanine Aminotransferase (ALT/SGPT) 29 U/L (16-63) Alkaline Phosphatase 91 U/L (46-116) Creatine Kinase 44 U/L (39-308) Troponin I Quantitative < 0.017 ng/mL (0.000-0.055) Total Protein 7.9 g/dL (6.4-8.2) Albumin 4.1 g/dL (3.4-5.0) Albumin/Globulin Ratio 1.1 (1.0-1.7) Lipase 54 U/L (73-393) Urine Collection Type Void Urine Color Yellow Urine Clarity Clear Urine pH 5.5 Urine Specific [place] >=1.030 Urine Protein Negative mg/dL (NEG-TRACE) Urine Glucose (UA) >=1000 mg/dL (NEG) Urine Ketones (Stick) 15 mg/dL (NEG) Urine Blood Negative (NEG) Urine Nitrite Negative (NEG) Urine Bilirubin Negative (NEG) Urine Urobilinogen Dipstick 1.0 mg/dL (0.2 mg/dL) Urine Leukocyte Esterase Negative (NEG) Urine RBC 0 /HPF (0-2) Urine WBC 0 /HPF (0-4) Urine Squamous Epithelial Cells None /LPF Urine Bacteria 0 /HPF (0-FEW) Urine Mucus Marked /LPF Glucose (Fingerstick) 233 mg/dL (70-99) 268 mg/dL (70-99) Test 09/04/18 23:05 09/05/18 07:11 09/05/18 09:00 09/05/18 11:47 Glucose (Fingerstick) 271 mg/dL (70-99) 204 mg/dL (70-99) 188 mg/dL (70-99) White Blood Count 13.4 x10^3/uL (4.0-11.0) Red Blood Count 4.57 x10^6/uL (4.30-5.70) Hemoglobin 13.8 g/dL (13.0-17.5) Hematocrit 40.4 % (39.0-53.0) Mean Corpuscular Volume 88 fL (79-100) Mean Corpuscular Hemoglobin 30 pg (25-35) Mean Corpuscular Hemoglobin Concent 34 g/dL (31-37) Red Cell Distribution Width 12.8 % (11.5-14.5) Platelet Count 181 x10^3/uL (140-400) Neutrophils (%) (Auto) 82 % (31-73) Lymphocytes (%) (Auto) 11 % (24-48) Monocytes (%) (Auto) 7 % (0-9) Eosinophils (%) (Auto) 0 % (0-3) Basophils (%) (Auto) 0 % (0-3) Neutrophils # (Auto) 11.1 x10^3uL (1.8-7.7) Lymphocytes # (Auto) 1.4 x10^3/uL (1.0-4.8) Monocytes # (Auto) 0.9 x10^3/uL (0.0-1.1) Eosinophils # (Auto) 0.0 x10^3/uL (0.0-0.7) Basophils # (Auto) 0.0 x10^3/uL (0.0-0.2) Sodium Level 139 mmol/L (136-145) Potassium Level 3.1 mmol/L (3.5-5.1) Chloride Level 103 mmol/L (98-107) Carbon Dioxide Level 23 mmol/L (21-32) Anion Gap 13 (6-14) Blood Urea Nitrogen 13 mg/dL (8-26) Creatinine 1.0 mg/dL (0.7-1.3) Estimated GFR (Cockcroft-Gault) 89.9 Glucose Level 229 mg/dL (70-99) Calcium Level 8.6 mg/dL (8.5-10.1) Total Bilirubin 2.1 mg/dL (0.2-1.0) Test 09/05/18 16:30 09/05/18 20:46 09/06/18 07:46 Glucose (Fingerstick) 172 mg/dL (70-99) 190 mg/dL (70-99) 149 mg/dL (70-99) Laboratory Tests Test 09/05/18 09:00 09/05/18 11:47 09/05/18 16:30 09/05/18 20:46 White Blood Count 13.4 x10^3/uL (4.0-11.0) Red Blood Count 4.57 x10^6/uL (4.30-5.70) Hemoglobin 13.8 g/dL (13.0-17.5) Hematocrit 40.4 % (39.0-53.0) Mean Corpuscular Volume 88 fL (79-100) Mean Corpuscular Hemoglobin 30 pg (25-35) Mean Corpuscular Hemoglobin Concent 34 g/dL (31-37) Red Cell Distribution Width 12.8 % (11.5-14.5) Platelet Count 181 x10^3/uL (140-400) Neutrophils (%) (Auto) 82 % (31-73) Lymphocytes (%) (Auto) 11 % (24-48) Monocytes (%) (Auto) 7 % (0-9) Eosinophils (%) (Auto) 0 % (0-3) Basophils (%) (Auto) 0 % (0-3) Neutrophils # (Auto) 11.1 x10^3uL (1.8-7.7) Lymphocytes # (Auto) 1.4 x10^3/uL (1.0-4.8) Monocytes # (Auto) 0.9 x10^3/uL (0.0-1.1) Eosinophils # (Auto) 0.0 x10^3/uL (0.0-0.7) Basophils # (Auto) 0.0 x10^3/uL (0.0-0.2) Sodium Level 139 mmol/L (136-145) Potassium Level 3.1 mmol/L (3.5-5.1) Chloride Level 103 mmol/L (98-107) Carbon Dioxide Level 23 mmol/L (21-32) Anion Gap 13 (6-14) Blood Urea Nitrogen 13 mg/dL (8-26) Creatinine 1.0 mg/dL (0.7-1.3) Estimated GFR (Cockcroft-Gault) 89.9 Glucose Level 229 mg/dL (70-99) Calcium Level 8.6 mg/dL (8.5-10.1) Total Bilirubin 2.1 mg/dL (0.2-1.0) Glucose (Fingerstick) 188 mg/dL (70-99) 172 mg/dL (70-99) 190 mg/dL (70-99) Test 09/06/18 07:46 Glucose (Fingerstick) 149 mg/dL (70-99) Problem List Problems Medical Problems: (1) Biliary colic Status: Acute (2) Gallbladder sludge Status: Acute (3) Hyperglycemia Status: Acute (4) Serum total bilirubin elevated Status: Acute Assessment/Plan s/p gangrenous darell continue abx liver panel pending NOREEN PENG APRN September 06, 2018 08:52
[2018-09-06 09:01] LABS: CALCIUM 8.5 mg/dL (8.5-10.1); CREATININE 0.8 mg/dL (0.7-1.3); GFR 116.3; POTASSIUM 3.3 mmol/L (3.5-5.1)
[2018-09-06 09:07] LABS: DIRECT BILIRUBIN 0.5 mg/dL (0.0-0.2); TOTAL BILIRUBIN 1.8 mg/dL (0.2-1.0); TOTAL PROTEIN 6.1 g/dL (6.4-8.2)
[2018-09-06 11:00] VITALS: BP 118/64
--- NOTE | 2018-09-06 11:18 | PDOC ---
PROGRESS NOTES Chief Complaint Chief Complaint Gangrenous cholecystitis status post cholecystectomy History off hypertension History of diabetes mellitus type 2 Morbid obesity with a BMI of 40 Hypokalemia Reactive leukocytosis History of Present Illness History of Present Illness passing gas and tolerating diet Has a PHILLIP drain with about 10-15 mL bloody discharge WBC 13 with no fevers, on Zosyn It was a gangrenous gallbladder Potassium mildly low 3.1 Plan The rest of the liver panel pending REplace K orally Repeat CBC ESR tomorrow ADA diet Most likely will be able to DC home tmr once numbers are better or at least leukocytosis doesn't worsen Start by mouth Percocet dw him - agreeable Vitals Vitals Vital Signs Date Time Temp Pulse Resp B/P (MAP) Pulse Ox O2 Delivery O2 Flow Rate FiO2 09/06/18 08:31 75 139/72 09/06/18 08:00 Room Air 09/06/18 07:00 98.5 20 94 98.5 Physical Exam General: Alert, Oriented X3, Cooperative, No acute distress Heart: Regular rate Abdomen: Soft, No masses, Other (ND, drain serosang, bloody, lap dressings dry) Extremities: No clubbing, No tenderness/swelling Skin: No rashes, No breakdown, Other Labs LABS Laboratory Tests Test 09/05/18 11:47 09/05/18 16:30 09/05/18 20:46 09/06/18 07:46 Glucose (Fingerstick) 188 mg/dL (70-99) 172 mg/dL (70-99) 190 mg/dL (70-99) 149 mg/dL (70-99) Test 09/06/18 08:14 White Blood Count 11.4 x10^3/uL (4.0-11.0) Red Blood Count 4.56 x10^6/uL (4.30-5.70) Hemoglobin 14.0 g/dL (13.0-17.5) Hematocrit 40.3 % (39.0-53.0) Mean Corpuscular Volume 88 fL (79-100) Mean Corpuscular Hemoglobin 31 pg (25-35) Mean Corpuscular Hemoglobin Concent 35 g/dL (31-37) Red Cell Distribution Width 13.1 % (11.5-14.5) Platelet Count 169 x10^3/uL (140-400) Neutrophils (%) (Auto) 66 % (31-73) Lymphocytes (%) (Auto) 25 % (24-48) Monocytes (%) (Auto) 8 % (0-9) Eosinophils (%) (Auto) 1 % (0-3) Basophils (%) (Auto) 0 % (0-3) Neutrophils # (Auto) 7.5 x10^3uL (1.8-7.7) Lymphocytes # (Auto) 2.8 x10^3/uL (1.0-4.8) Monocytes # (Auto) 0.9 x10^3/uL (0.0-1.1) Eosinophils # (Auto) 0.1 x10^3/uL (0.0-0.7) Basophils # (Auto) 0.0 x10^3/uL (0.0-0.2) Sodium Level 139 mmol/L (136-145) Potassium Level 3.3 mmol/L (3.5-5.1) Chloride Level 104 mmol/L (98-107) Carbon Dioxide Level 25 mmol/L (21-32) Anion Gap 10 (6-14) Blood Urea Nitrogen 10 mg/dL (8-26) Creatinine 0.8 mg/dL (0.7-1.3) Estimated GFR (Cockcroft-Gault) 116.3 Glucose Level 162 mg/dL (70-99) Calcium Level 8.5 mg/dL (8.5-10.1) Total Bilirubin 1.8 mg/dL (0.2-1.0) Direct Bilirubin 0.5 mg/dL (0.0-0.2) Aspartate Amino Transf (AST/SGOT) 28 U/L (15-37) Alanine Aminotransferase (ALT/SGPT) 31 U/L (16-63) Alkaline Phosphatase 73 U/L (46-116) Total Protein 6.1 g/dL (6.4-8.2) Albumin 3.0 g/dL (3.4-5.0) Review of Systems Review of Systems A 14 point ROS was completed with the following noted as positive: Other systems reviewed and negative. \CONSTITUTIONAL: No fever or chills EYES: No recent changes SKIN: No rash or itching CARDIOVASCULAR: No chest pain, syncope, palpitations, or edema RESPIRATORY: No SOB or cough GASTROINTESTINAL: No nausea, vomiting or abdominal pain NEUROLOGICAL: No headaches or weakness ENDOCRINE: No cold or heat intolerance GENITOURINARY: No urgency or frequency of urination MUSCULOSKELETAL: No back pain or joint pain LYMPHATICS: No enlarged lymph nodes PSYCHIATRIC: No anxiety or depression Assessment and Plan Assessmemt and Plan Problems Medical Problems: (1) Biliary colic Status: Acute (2) Gallbladder sludge Status: Acute (3) Hyperglycemia Status: Acute (4) Serum total bilirubin elevated Status: Acute Comment Review of Relevant I have reviewed the following items maryann (where applicable) has been applied. Labs Laboratory Tests Test 09/04/18 13:15 09/04/18 15:48 09/04/18 18:12 09/04/18 23:05 Urine Collection Type Void Urine Color Yellow Urine Clarity Clear Urine pH 5.5 Urine Specific Oneco >=1.030 Urine Protein Negative mg/dL (NEG-TRACE) Urine Glucose (UA) >=1000 mg/dL (NEG) Urine Ketones (Stick) 15 mg/dL (NEG) Urine Blood Negative (NEG) Urine Nitrite Negative (NEG) Urine Bilirubin Negative (NEG) Urine Urobilinogen Dipstick 1.0 mg/dL (0.2 mg/dL) Urine Leukocyte Esterase Negative (NEG) Urine RBC 0 /HPF (0-2) Urine WBC 0 /HPF (0-4) Urine Squamous Epithelial Cells None /LPF Urine Bacteria 0 /HPF (0-FEW) Urine Mucus Marked /LPF Glucose (Fingerstick) 233 mg/dL (70-99) 268 mg/dL (70-99) 271 mg/dL (70-99) Test 09/05/18 07:11 09/05/18 09:00 09/05/18 11:47 09/05/18 16:30 Glucose (Fingerstick) 204 mg/dL (70-99) 188 mg/dL (70-99) 172 mg/dL (70-99) White Blood Count 13.4 x10^3/uL (4.0-11.0) Red Blood Count 4.57 x10^6/uL (4.30-5.70) Hemoglobin 13.8 g/dL (13.0-17.5) Hematocrit 40.4 % (39.0-53.0) Mean Corpuscular Volume 88 fL (79-100) Mean Corpuscular Hemoglobin 30 pg (25-35) Mean Corpuscular Hemoglobin Concent 34 g/dL (31-37) Red Cell Distribution Width 12.8 % (11.5-14.5) Platelet Count 181 x10^3/uL (140-400) Neutrophils (%) (Auto) 82 % (31-73) Lymphocytes (%) (Auto) 11 % (24-48) Monocytes (%) (Auto) 7 % (0-9) Eosinophils (%) (Auto) 0 % (0-3) Basophils (%) (Auto) 0 % (0-3) Neutrophils # (Auto) 11.1 x10^3uL (1.8-7.7) Lymphocytes # (Auto) 1.4 x10^3/uL (1.0-4.8) Monocytes # (Auto) 0.9 x10^3/uL (0.0-1.1) Eosinophils # (Auto) 0.0 x10^3/uL (0.0-0.7) Basophils # (Auto) 0.0 x10^3/uL (0.0-0.2) Sodium Level 139 mmol/L (136-145) Potassium Level 3.1 mmol/L (3.5-5.1) Chloride Level 103 mmol/L (98-107) Carbon Dioxide Level 23 mmol/L (21-32) Anion Gap 13 (6-14) Blood Urea Nitrogen 13 mg/dL (8-26) Creatinine 1.0 mg/dL (0.7-1.3) Estimated GFR (Cockcroft-Gault) 89.9 Glucose Level 229 mg/dL (70-99) Calcium Level 8.6 mg/dL (8.5-10.1) Total Bilirubin 2.1 mg/dL (0.2-1.0) Test 09/05/18 20:46 09/06/18 07:46 09/06/18 08:14 Glucose (Fingerstick) 190 mg/dL (70-99) 149 mg/dL (70-99) White Blood Count 11.4 x10^3/uL (4.0-11.0) Red Blood Count 4.56 x10^6/uL (4.30-5.70) Hemoglobin 14.0 g/dL (13.0-17.5) Hematocrit 40.3 % (39.0-53.0) Mean Corpuscular Volume 88 fL (79-100) Mean Corpuscular Hemoglobin 31 pg (25-35) Mean Corpuscular Hemoglobin Concent 35 g/dL (31-37) Red Cell Distribution Width 13.1 % (11.5-14.5) Platelet Count 169 x10^3/uL (140-400) Neutrophils (%) (Auto) 66 % (31-73) Lymphocytes (%) (Auto) 25 % (24-48) Monocytes (%) (Auto) 8 % (0-9) Eosinophils (%) (Auto) 1 % (0-3) Basophils (%) (Auto) 0 % (0-3) Neutrophils # (Auto) 7.5 x10^3uL (1.8-7.7) Lymphocytes # (Auto) 2.8 x10^3/uL (1.0-4.8) Monocytes # (Auto) 0.9 x10^3/uL (0.0-1.1) Eosinophils # (Auto) 0.1 x10^3/uL (0.0-0.7) Basophils # (Auto) 0.0 x10^3/uL (0.0-0.2) Sodium Level 139 mmol/L (136-145) Potassium Level 3.3 mmol/L (3.5-5.1) Chloride Level 104 mmol/L (98-107) Carbon Dioxide Level 25 mmol/L (21-32) Anion Gap 10 (6-14) Blood Urea Nitrogen 10 mg/dL (8-26) Creatinine 0.8 mg/dL (0.7-1.3) Estimated GFR (Cockcroft-Gault) 116.3 Glucose Level 162 mg/dL (70-99) Calcium Level 8.5 mg/dL (8.5-10.1) Total Bilirubin 1.8 mg/dL (0.2-1.0) Direct Bilirubin 0.5 mg/dL (0.0-0.2) Aspartate Amino Transf (AST/SGOT) 28 U/L (15-37) Alanine Aminotransferase (ALT/SGPT) 31 U/L (16-63) Alkaline Phosphatase 73 U/L (46-116) Total Protein 6.1 g/dL (6.4-8.2) Albumin 3.0 g/dL (3.4-5.0) Laboratory Tests Test 09/05/18 11:47 09/05/18 16:30 09/05/18 20:46 09/06/18 07:46 Glucose (Fingerstick) 188 mg/dL (70-99) 172 mg/dL (70-99) 190 mg/dL (70-99) 149 mg/dL (70-99) Test 09/06/18 08:14 White Blood Count 11.4 x10^3/uL (4.0-11.0) Red Blood Count 4.56 x10^6/uL (4.30-5.70) Hemoglobin 14.0 g/dL (13.0-17.5) Hematocrit 40.3 % (39.0-53.0) Mean Corpuscular Volume 88 fL (79-100) Mean Corpuscular Hemoglobin 31 pg (25-35) Mean Corpuscular Hemoglobin Concent 35 g/dL (31-37) Red Cell Distribution Width 13.1 % (11.5-14.5) Platelet Count 169 x10^3/uL (140-400) Neutrophils (%) (Auto) 66 % (31-73) Lymphocytes (%) (Auto) 25 % (24-48) Monocytes (%) (Auto) 8 % (0-9) Eosinophils (%) (Auto) 1 % (0-3) Basophils (%) (Auto) 0 % (0-3) Neutrophils # (Auto) 7.5 x10^3uL (1.8-7.7) Lymphocytes # (Auto) 2.8 x10^3/uL (1.0-4.8) Monocytes # (Auto) 0.9 x10^3/uL (0.0-1.1) Eosinophils # (Auto) 0.1 x10^3/uL (0.0-0.7) Basophils # (Auto) 0.0 x10^3/uL (0.0-0.2) Sodium Level 139 mmol/L (136-145) Potassium Level 3.3 mmol/L (3.5-5.1) Chloride Level 104 mmol/L (98-107) Carbon Dioxide Level 25 mmol/L (21-32) Anion Gap 10 (6-14) Blood Urea Nitrogen 10 mg/dL (8-26) Creatinine 0.8 mg/dL (0.7-1.3) Estimated GFR (Cockcroft-Gault) 116.3 Glucose Level 162 mg/dL (70-99) Calcium Level 8.5 mg/dL (8.5-10.1) Total Bilirubin 1.8 mg/dL (0.2-1.0) Direct Bilirubin 0.5 mg/dL (0.0-0.2) Aspartate Amino Transf (AST/SGOT) 28 U/L (15-37) Alanine Aminotransferase (ALT/SGPT) 31 U/L (16-63) Alkaline Phosphatase 73 U/L (46-116) Total Protein 6.1 g/dL (6.4-8.2) Albumin 3.0 g/dL (3.4-5.0) Medications Current Medications Fentanyl Citrate (Fentanyl 2ml Vial) 50 mcg 1X ONCE IV Last administered on 09/04/18 10:46; Start 09/04/18 at 10:30; Stop 09/04/18 at 10:32; Status DC Ondansetron HCl (Zofran) 4 mg 1X ONCE IV Last administered on 09/04/18at 10:46; Start 09/04/18 at 10:30; Stop 09/04/18 at 10:32; Status DC Hydromorphone HCl (Dilaudid) 1 mg 1X ONCE IV Last administered on 09/04/18at 12:59; Start 09/04/18 at 12:45; Stop 09/04/18 at 12:46; Status DC Iohexol (Omnipaque 300 Mg/ml) 100 ml 1X ONCE IV Last administered on 09/04/18at 12:50; Start 09/04/18 at 12:30; Stop 09/04/18 at 12:31; Status DC Sodium Chloride 1,000 ml @ 150 mls/hr Q6H40M IV Last administered on 09/05/18at 08:46; Start 09/04/18 at 12:25; Stop 09/05/18 at 12:24; Status DC Info (CONTRAST GIVEN -- Rx MONITORING) 1 each PRN DAILY PRN MC SEE COMMENTS; Start 09/04/18 at 12:30; Stop 09/06/18 at 12:29 Cefazolin Sodium 3 gm/Dextrose 100 ml @ 200 mls/hr 1X PREOP PRN IV protocol; Start 09/04/18 at 15:44; Stop 09/05/18 at 10:29; Status DC Ondansetron HCl (Zofran) 4 mg PRN Q6HRS PRN IV NAUSEA/VOMITING; Start 09/04/18 at 15:00; Stop 09/05/18 at 14:55; Status DC Fentanyl Citrate (Fentanyl 2ml Vial) 25 mcg PRN Q5MIN PRN IV MILD PAIN 1-3; Start 09/04/18 at 15:00; Stop 09/05/18 at 14:55; Status DC Fentanyl Citrate (Fentanyl 2ml Vial) 50 mcg PRN Q5MIN PRN IV MODERATE TO SEVERE PAIN; Start 09/04/18 at 15:00; Stop 09/05/18 at 14:55; Status DC Morphine Sulfate (Morphine Sulfate) 1 mg PRN Q10MIN PRN IV SEVERE PAIN 7-10; Start 09/04/18 at 15:00; Stop 09/05/18 at 14:55; Status DC Ringer's Solution 1,000 ml @ 30 mls/hr Q24H IV ; Start 09/04/18 at 14:47; Stop 09/05/18 at 02:46; Status DC Lidocaine HCl (Xylocaine-Mpf 1% 2ml Vial) 2 ml PRN 1X PRN ID PRIOR TO IV START; Start 09/04/18 at 15:00; Stop 09/05/18 at 14:55; Status DC Hydromorphone HCl (Dilaudid) 0.5 mg PRN Q10MIN PRN IV SEV PAIN, Second choice; Start 09/04/18 at 15:00; Stop 09/05/18 at 14:55; Status DC Prochlorperazine Edisylate (Compazine) 5 mg PACU PRN PRN IV NAUSEA, MRX1; Start 09/04/18 at 15:00; Stop 09/05/18 at 14:55; Status DC Propofol 20 ml @ As Directed STK-MED ONCE IV ; Start 09/04/18 at 15:29; Stop at 15:30; Status DC Lidocaine HCl (Lidocaine Pf 2% Vial) 5 ml STK-MED ONCE .ROUTE ; Start 09/04/18 at 15:29; Stop 09/04/18 at 15:30; Status DC Dexamethasone Sodium Phosphate (Decadron) 4 mg STK-MED ONCE .ROUTE ; Start 09/04/18 at 15:30; Stop 09/04/18 at 15:31; Status DC Ondansetron HCl (Zofran) 4 mg STK-MED ONCE .ROUTE ; Start 09/04/18 at 15:30; Stop 09/04/18 at 15:31; Status DC Dexamethasone Sodium Phosphate (Decadron) 4 mg STK-MED ONCE .ROUTE ; Start 09/04/18 at 15:30; Stop 09/04/18 at 15:31; Status DC Succinylcholine Chloride (Anectine) 200 mg STK-MED ONCE .ROUTE ; Start 09/04/18 at 15:30; Stop 09/04/18 at 15:31; Status DC Rocuronium [place] (Zemuron) 50 mg STK-MED ONCE .ROUTE ; Start 09/04/18 at 15:31; Stop 09/04/18 at 15:32; Status DC Fentanyl Citrate (Fentanyl 2ml Vial) 100 mcg STK-MED ONCE .ROUTE ; Start 09/04/18 at 15:31; Stop 09/04/18 at 15:32; Status DC Bupivacaine HCl/ Epinephrine Bitart (Sensorcain-Mpf Epi 0.5%-[id number]) 30 ml STK-MED ONCE .ROUTE Last administered on 09/04/18at 17:03; Start 09/04/18 at 15:18; Stop 09/04/18 at 16:18; Status DC Glucagon (Glucagen) 1 mg STK-MED ONCE .ROUTE ; Start 09/04/18 at 15:18; Stop 09/04/18 at 16:18; Status DC Iohexol (Omnipaque 300 Mg/ml) 50 ml STK-MED ONCE .ROUTE Last administered on 09/04/18at 17:03; Start 09/04/18 at 15:18; Stop 09/04/18 at 16:18; Status DC Cellulose (Surgicel Hemostat 4x8) 1 each STK-MED ONCE .ROUTE Last administered on 09/04/18at 17:03; Start 09/04/18 at 15:18; Stop 09/04/18 at 16:18; Status DC Fentanyl Citrate (Fentanyl 2ml Vial) 100 mcg STK-MED ONCE .ROUTE ; Start 09/04/18 at 17:03; Stop 09/04/18 at 17:04; Status DC Neostigmine Methylsulfate (Neostigmine Methylsulfate) 5 mg STK-MED ONCE .ROUTE ; Start 09/04/18 at 17:34; Stop 09/04/18 at 17:35; Status DC Glycopyrrolate (Robinul) 1 mg STK-MED ONCE .ROUTE ; Start 09/04/18 at 17:35; Stop 09/04/18 at 17:36; Status DC Insulin Human Regular (HumuLIN R VIAL) 8 unit PACU PRN SQ ; Start 09/04/18 at 18:15; Status Cancel Insulin Human Lispro (HumaLOG VIAL) 8 unit 1X PACU SQ ; Start 09/04/18 at 18:30; Stop 09/04/18 at 18:30; Status DC Insulin Human Lispro (HumaLOG VIAL) 8 unit 1X ONCE SQ Last administered on 09/04/18at 18:31; Start 09/04/18 at 18:30; Stop 09/04/18 at 18:31; Status DC Piperacillin Sod/ Tazobactam Sod 4.5 gm/Sodium Chloride 100 ml @ 200 mls/hr Q6HRS IV Last administered on 09/06/18at 06:23; Start 09/04/18 at 19:00 Hydromorphone HCl (Dilaudid) 1 mg PRN Q3HRS PRN IV pain Last administered on 09/05/18at 22:15; Start 09/04/18 at 21:00 Atorvastatin Calcium (Lipitor) 40 mg QHS PO Last administered on 09/05/18at 22:14; Start 09/05/18 at 21:00 Metoprolol Succinate (Toprol Xl) 100 mg DAILY PO Last administered on 09/06/18at 08:31; Start 09/05/18 at 09:00 Triamterene/HCTZ (Maxzide 37.5/ 25mg) 1 tab DAILY PO Last administered on 09/06/18at 08:31; Start 09/05/18 at 09:00 Aspirin (Ecotrin) 325 mg DAILYWBKFT PO Last administered on 09/06/18at 08:31; Start 09/05/18 at 09:00 Metformin HCl (Glucophage) 1,000 mg BIDWMEALS PO ; Start 09/06/18 at 17:00 Lactobacillus Rhamnosus (Culturelle) 1 cap BID PO Last administered on 09/06/18at 08:31; Start 09/05/18 at 11:00 Oxycodone/ Acetaminophen (Percocet 5/325) 1 tab PRN Q4HRS PRN PO MILD PAIN 1-3; Start 09/06/18 at 08:00 Oxycodone/ Acetaminophen (Percocet 10/325) 1 tab PRN Q4HRS PRN PO MODERATE PAIN, SEVERE PAIN; Start 09/06/18 at 08:00 Ondansetron HCl (Zofran) 4 mg PRN Q6HRS PRN IV NAUSEA/VOMITING; Start 09/06/18 at 08:00 Vitals/I & O Vital Sign - Last 24 Hours 09/05/18 09/05/18 09/05/18 09/05/18 15:02 19:33 20:00 22:15 Temp 98.0 98.2 98.0 98.2 Pulse 88 71 Resp 18 24 17 B/P (MAP) 135/76 (95) 122/58 (79) Pulse Ox 98 95 O2 Delivery Room Air Room Air Room Air Room Air 09/05/18 09/05/18 09/06/18 09/06/18 22:45 23:46 03:32 07:00 Temp 98.2 97.5 98.5 98.2 97.5 98.5 Pulse 68 67 75 Resp 17 17 20 20 B/P (MAP) 105/52 (69) 104/61 (75) 139/72 (94) Pulse Ox 96 96 94 O2 Delivery Room Air Room Air Room Air Room Air 09/06/18 09/06/18 08:00 08:31 Pulse 75 B/P (MAP) 139/72 O2 Delivery Room Air Intake and Output 09/05/18 09/05/18 09/06/18 15:00 23:00 07:00 Intake Total 600 ml 900 ml 450 ml Output Total 750 ml Balance 600 ml 900 ml -300 ml SYLVIE LI MD September 06, 2018 11:18
[2018-09-06] MEDS ORDERED: POTASSIUM CHLORIDE 20 MEQ TABLET.ER. PO ONE (14:00)
[2018-09-06 15:00] VITALS: BP 123/57
[2018-09-06] MEDS: metFORMIN 500 MG TABLET PO SCH (18:00)
[2018-09-06 19:15] VITALS: BP 140/72
[2018-09-06] MEDS: ATORVASTATIN CALCIUM 40 MG TABLET. PO SCH (21:03)
[2018-09-06 23:10] VITALS: BP 138/80
[2018-09-07 03:10] VITALS: BP 117/57
[2018-09-07 04:04] LABS: BASO % 0 % (0-3); EOS # 0.3 x10^3/uL (0.0-0.7); EOS % 3 % (0-3); HEMATOCRIT 40.5 % (39.0-53.0); HEMOGLOBIN 14.4 g/dL (13.0-17.5); LYMPH % 30 % (24-48); MEAN CORPUSCULAR HEMOGLOBIN 31 pg (25-35); MEAN CORPUSCULAR HGB CONC 36 g/dL (31-37); MEAN CORPUSCULAR VOLUME 88 fL (79-100); MONO # 0.8 x10^3/uL (0.0-1.1); MONO % 8 % (0-9); NEUT # 5.7 x10^3uL (1.8-7.7); NEUT % 59 % (31-73); PLATELET COUNT 184 x10^3/uL (140-400); RED BLOOD COUNT 4.61 x10^6/uL (4.30-5.70); RED CELL DISTRIBUTION WIDTH 12.9 % (11.5-14.5); WHITE BLOOD COUNT 9.8 x10^3/uL (4.0-11.0)
[2018-09-07 04:34] LABS: ALBUMIN 2.8 g/dL (3.4-5.0); ALBUMIN/GLOBULIN RATIO 0.7 (1.0-1.7); CREATININE 0.9 mg/dL (0.7-1.3); GFR 101.5; POTASSIUM 3.4 mmol/L (3.5-5.1); TOTAL BILIRUBIN 1.7 mg/dL (0.2-1.0); TOTAL PROTEIN 6.7 g/dL (6.4-8.2)
[2018-09-07] MEDS: PIPERACILLIN/TAZOBACTAM 4.5 GM in IV NORMAL SALINE 100ML 100 ML IV SCH ×2 (05:35→11:53)
[2018-09-07 07:00] VITALS: BP 127/67
[2018-09-07] MEDS ORDERED: POTASSIUM CHLORIDE 20 MEQ TABLET.ER. PO ONE (08:15)
[2018-09-07] MEDS ORDERED: AMOX1TAB61 PO (08:16)
[2018-09-07] MEDS ORDERED: OXYC1TAB15 PO (08:16)
[2018-09-07] MEDS: LACTOBACILLUS RHAMNOSUS GG 1 CAPSULE. PO SCH (08:45)
[2018-09-07] MEDS: TRIAMTERENE/HCTZ 37.5/25MG TABLET. PO SCH (08:45)
[2018-09-07] MEDS: METOPROLOL SUCC 24HR ER 100 MG TAB.ER.24H. PO SCH (08:46)
[2018-09-07] MEDS: metFORMIN 500 MG TABLET PO SCH (08:46)
[2018-09-07] MEDS: ASPIRIN ENTERIC COATED 325 MG TABLET.DR. PO SCH (08:46)
--- NOTE | 2018-09-07 10:14 | PDOC3 ---
Discharge Summary Visit Information Date of Admission: September 04, 2018 Date of Discharge: September 07, 2018 Admitting Diagnosis Comment: Gangrenous cholecystitis status post cholecystectomy History off hypertension History of diabetes mellitus type 2 Morbid obesity with a BMI of 40 Hypokalemia Reactive leukocytosis Final Diagnosis Problems Medical Problems: (1) Biliary colic Status: Acute (2) Gallbladder sludge Status: Acute (3) Hyperglycemia Status: Acute (4) Serum total bilirubin elevated Status: Acute Brief Hospital Course Allergies Allergies Coded Allergies Type Severity Reaction Last Updated Verified No Known Drug Allergies 09/04/18 No Vital Signs Vital Signs Date Time Temp Pulse Resp B/P (MAP) Pulse Ox O2 Delivery O2 Flow Rate FiO2 09/07/18 08:46 65 127/67 09/07/18 07:00 98.2 18 96 Room Air 98.2 Lab Results Laboratory Tests Test 09/05/18 11:47 09/05/18 16:30 09/05/18 20:46 09/06/18 07:46 Glucose (Fingerstick) 188 mg/dL (70-99) 172 mg/dL (70-99) 190 mg/dL (70-99) 149 mg/dL (70-99) Test 09/06/18 08:14 09/06/18 11:55 09/06/18 16:59 09/06/18 20:57 White Blood Count 11.4 x10^3/uL (4.0-11.0) Red Blood Count 4.56 x10^6/uL (4.30-5.70) Hemoglobin 14.0 g/dL (13.0-17.5) Hematocrit 40.3 % (39.0-53.0) Mean Corpuscular Volume 88 fL (79-100) Mean Corpuscular Hemoglobin 31 pg (25-35) Mean Corpuscular Hemoglobin Concent 35 g/dL (31-37) Red Cell Distribution Width 13.1 % (11.5-14.5) Platelet Count 169 x10^3/uL (140-400) Neutrophils (%) (Auto) 66 % (31-73) Lymphocytes (%) (Auto) 25 % (24-48) Monocytes (%) (Auto) 8 % (0-9) Eosinophils (%) (Auto) 1 % (0-3) Basophils (%) (Auto) 0 % (0-3) Neutrophils # (Auto) 7.5 x10^3uL (1.8-7.7) Lymphocytes # (Auto) 2.8 x10^3/uL (1.0-4.8) Monocytes # (Auto) 0.9 x10^3/uL (0.0-1.1) Eosinophils # (Auto) 0.1 x10^3/uL (0.0-0.7) Basophils # (Auto) 0.0 x10^3/uL (0.0-0.2) Sodium Level 139 mmol/L (136-145) Potassium Level 3.3 mmol/L (3.5-5.1) Chloride Level 104 mmol/L (98-107) Carbon Dioxide Level 25 mmol/L (21-32) Anion Gap 10 (6-14) Blood Urea Nitrogen 10 mg/dL (8-26) Creatinine 0.8 mg/dL (0.7-1.3) Estimated GFR (Cockcroft-Gault) 116.3 Glucose Level 162 mg/dL (70-99) Calcium Level 8.5 mg/dL (8.5-10.1) Total Bilirubin 1.8 mg/dL (0.2-1.0) Direct Bilirubin 0.5 mg/dL (0.0-0.2) Aspartate Amino Transf (AST/SGOT) 28 U/L (15-37) Alanine Aminotransferase (ALT/SGPT) 31 U/L (16-63) Alkaline Phosphatase 73 U/L (46-116) Total Protein 6.1 g/dL (6.4-8.2) Albumin 3.0 g/dL (3.4-5.0) Glucose (Fingerstick) 193 mg/dL (70-99) 180 mg/dL (70-99) 212 mg/dL (70-99) Test 09/07/18 02:35 09/07/18 07:43 White Blood Count 9.8 x10^3/uL (4.0-11.0) Red Blood Count 4.61 x10^6/uL (4.30-5.70) Hemoglobin 14.4 g/dL (13.0-17.5) Hematocrit 40.5 % (39.0-53.0) Mean Corpuscular Volume 88 fL (79-100) Mean Corpuscular Hemoglobin 31 pg (25-35) Mean Corpuscular Hemoglobin Concent 36 g/dL (31-37) Red Cell Distribution Width 12.9 % (11.5-14.5) Platelet Count 184 x10^3/uL (140-400) Neutrophils (%) (Auto) 59 % (31-73) Lymphocytes (%) (Auto) 30 % (24-48) Monocytes (%) (Auto) 8 % (0-9) Eosinophils (%) (Auto) 3 % (0-3) Basophils (%) (Auto) 0 % (0-3) Neutrophils # (Auto) 5.7 x10^3uL (1.8-7.7) Lymphocytes # (Auto) 3.0 x10^3/uL (1.0-4.8) Monocytes # (Auto) 0.8 x10^3/uL (0.0-1.1) Eosinophils # (Auto) 0.3 x10^3/uL (0.0-0.7) Basophils # (Auto) 0.0 x10^3/uL (0.0-0.2) Erythrocyte Sedimentation Rate 40 (0-15) Sodium Level 140 mmol/L (136-145) Potassium Level 3.4 mmol/L (3.5-5.1) Chloride Level 102 mmol/L (98-107) Carbon Dioxide Level 28 mmol/L (21-32) Anion Gap 10 (6-14) Blood Urea Nitrogen 9 mg/dL (8-26) Creatinine 0.9 mg/dL (0.7-1.3) Estimated GFR (Cockcroft-Gault) 101.5 BUN/Creatinine Ratio 10 (6-20) Glucose Level 146 mg/dL (70-99) Calcium Level 9.0 mg/dL (8.5-10.1) Total Bilirubin 1.7 mg/dL (0.2-1.0) Aspartate Amino Transf (AST/SGOT) 20 U/L (15-37) Alanine Aminotransferase (ALT/SGPT) 29 U/L (16-63) Alkaline Phosphatase 70 U/L (46-116) Total Protein 6.7 g/dL (6.4-8.2) Albumin 2.8 g/dL (3.4-5.0) Albumin/Globulin Ratio 0.7 (1.0-1.7) Glucose (Fingerstick) 161 mg/dL (70-99) Laboratory Tests Test 09/06/18 11:55 09/06/18 16:59 09/06/18 20:57 09/07/18 02:35 Glucose (Fingerstick) 193 mg/dL (70-99) 180 mg/dL (70-99) 212 mg/dL (70-99) White Blood Count 9.8 x10^3/uL (4.0-11.0) Red Blood Count 4.61 x10^6/uL (4.30-5.70) Hemoglobin 14.4 g/dL (13.0-17.5) Hematocrit 40.5 % (39.0-53.0) Mean Corpuscular Volume 88 fL (79-100) Mean Corpuscular Hemoglobin 31 pg (25-35) Mean Corpuscular Hemoglobin Concent 36 g/dL (31-37) Red Cell Distribution Width 12.9 % (11.5-14.5) Platelet Count 184 x10^3/uL (140-400) Neutrophils (%) (Auto) 59 % (31-73) Lymphocytes (%) (Auto) 30 % (24-48) Monocytes (%) (Auto) 8 % (0-9) Eosinophils (%) (Auto) 3 % (0-3) Basophils (%) (Auto) 0 % (0-3) Neutrophils # (Auto) 5.7 x10^3uL (1.8-7.7) Lymphocytes # (Auto) 3.0 x10^3/uL (1.0-4.8) Monocytes # (Auto) 0.8 x10^3/uL (0.0-1.1) Eosinophils # (Auto) 0.3 x10^3/uL (0.0-0.7) Basophils # (Auto) 0.0 x10^3/uL (0.0-0.2) Erythrocyte Sedimentation Rate 40 (0-15) Sodium Level 140 mmol/L (136-145) Potassium Level 3.4 mmol/L (3.5-5.1) Chloride Level 102 mmol/L (98-107) Carbon Dioxide Level 28 mmol/L (21-32) Anion Gap 10 (6-14) Blood Urea Nitrogen 9 mg/dL (8-26) Creatinine 0.9 mg/dL (0.7-1.3) Estimated GFR (Cockcroft-Gault) 101.5 BUN/Creatinine Ratio 10 (6-20) Glucose Level 146 mg/dL (70-99) Calcium Level 9.0 mg/dL (8.5-10.1) Total Bilirubin 1.7 mg/dL (0.2-1.0) Aspartate Amino Transf (AST/SGOT) 20 U/L (15-37) Alanine Aminotransferase (ALT/SGPT) 29 U/L (16-63) Alkaline Phosphatase 70 U/L (46-116) Total Protein 6.7 g/dL (6.4-8.2) Albumin 2.8 g/dL (3.4-5.0) Albumin/Globulin Ratio 0.7 (1.0-1.7) Test 09/07/18 07:43 Glucose (Fingerstick) 161 mg/dL (70-99) Brief Hospital Course Mr. Merlos is a 68 old obese white male who underwent laparoscopic cholecystectomy by GS with indwelling PHILLIP drain. It was a gangrenous gallbladder. Had some leukocytosis but he was nontoxic appearing and no fever. Leukocytosis has resolved. Tolerating diet. Stable for home today with follow-up GS. Still has indwelling PHILLIP drain we will see if he goes home with it or removal before discharging today Consults performed GS Proc performed lap cholecystectomy dc < 30 Discharge Information Condition at Discharge: Improved, Stable Follow Up: Weeks (2 weeks GS) Disposition/Orders: D/C to Home Scheduled Amoxicillin/Potassium Clav (Augmentin 875-125 Tablet) 1 Each Tablet, 1 TAB PO BID for gangrenous gall bladder postop, #14 Prescribed by: SYLVIE LI on 09/07/18815 Scheduled PRN Oxycodone/Apap 5-325 (Percocet 5-325 Mg Tablet ) 1 Each Tablet, 1 TAB PO PRN Q6HRS PRN for PAIN, #20 Ref 0 Prescribed by: SYLVIE LI on 09/07/18815 SYLVIE LI MD September 07, 2018 10:14
[2018-09-07 11:00] VITALS: BP 132/72
--- NOTE | 2018-09-07 11:26 | PDOC ---
SURGICAL PROGRESS NOTE Subjective tolerating diet pain managed ambulating Vital Signs Vital Signs Date Time Temp Pulse Resp B/P (MAP) Pulse Ox O2 Delivery O2 Flow Rate FiO2 09/07/18 08:46 65 127/67 09/07/18 08:00 Room Air 09/07/18 07:00 98.2 18 96 98.2 I&O Intake and Output 09/07/18 07:00 Intake Total 1040 ml Output Total 2025 ml Balance -985 ml Intake Oral 740 ml IV Total 300 ml Output Urine Total 1925 ml Drainage Total 100 ml General: Alert, Oriented X3, Cooperative, No acute distress Abdomen: Soft, Other (drain serosang, lap sites c/d/i, no erythema) Labs Laboratory Tests Test 09/05/18 11:47 09/05/18 16:30 09/05/18 20:46 09/06/18 07:46 Glucose (Fingerstick) 188 mg/dL (70-99) 172 mg/dL (70-99) 190 mg/dL (70-99) 149 mg/dL (70-99) Test 09/06/18 08:14 09/06/18 11:55 09/06/18 16:59 09/06/18 20:57 White Blood Count 11.4 x10^3/uL (4.0-11.0) Red Blood Count 4.56 x10^6/uL (4.30-5.70) Hemoglobin 14.0 g/dL (13.0-17.5) Hematocrit 40.3 % (39.0-53.0) Mean Corpuscular Volume 88 fL (79-100) Mean Corpuscular Hemoglobin 31 pg (25-35) Mean Corpuscular Hemoglobin Concent 35 g/dL (31-37) Red Cell Distribution Width 13.1 % (11.5-14.5) Platelet Count 169 x10^3/uL (140-400) Neutrophils (%) (Auto) 66 % (31-73) Lymphocytes (%) (Auto) 25 % (24-48) Monocytes (%) (Auto) 8 % (0-9) Eosinophils (%) (Auto) 1 % (0-3) Basophils (%) (Auto) 0 % (0-3) Neutrophils # (Auto) 7.5 x10^3uL (1.8-7.7) Lymphocytes # (Auto) 2.8 x10^3/uL (1.0-4.8) Monocytes # (Auto) 0.9 x10^3/uL (0.0-1.1) Eosinophils # (Auto) 0.1 x10^3/uL (0.0-0.7) Basophils # (Auto) 0.0 x10^3/uL (0.0-0.2) Sodium Level 139 mmol/L (136-145) Potassium Level 3.3 mmol/L (3.5-5.1) Chloride Level 104 mmol/L (98-107) Carbon Dioxide Level 25 mmol/L (21-32) Anion Gap 10 (6-14) Blood Urea Nitrogen 10 mg/dL (8-26) Creatinine 0.8 mg/dL (0.7-1.3) Estimated GFR (Cockcroft-Gault) 116.3 Glucose Level 162 mg/dL (70-99) Calcium Level 8.5 mg/dL (8.5-10.1) Total Bilirubin 1.8 mg/dL (0.2-1.0) Direct Bilirubin 0.5 mg/dL (0.0-0.2) Aspartate Amino Transf (AST/SGOT) 28 U/L (15-37) Alanine Aminotransferase (ALT/SGPT) 31 U/L (16-63) Alkaline Phosphatase 73 U/L (46-116) Total Protein 6.1 g/dL (6.4-8.2) Albumin 3.0 g/dL (3.4-5.0) Glucose (Fingerstick) 193 mg/dL (70-99) 180 mg/dL (70-99) 212 mg/dL (70-99) Test 09/07/18 02:35 09/07/18 07:43 White Blood Count 9.8 x10^3/uL (4.0-11.0) Red Blood Count 4.61 x10^6/uL (4.30-5.70) Hemoglobin 14.4 g/dL (13.0-17.5) Hematocrit 40.5 % (39.0-53.0) Mean Corpuscular Volume 88 fL (79-100) Mean Corpuscular Hemoglobin 31 pg (25-35) Mean Corpuscular Hemoglobin Concent 36 g/dL (31-37) Red Cell Distribution Width 12.9 % (11.5-14.5) Platelet Count 184 x10^3/uL (140-400) Neutrophils (%) (Auto) 59 % (31-73) Lymphocytes (%) (Auto) 30 % (24-48) Monocytes (%) (Auto) 8 % (0-9) Eosinophils (%) (Auto) 3 % (0-3) Basophils (%) (Auto) 0 % (0-3) Neutrophils # (Auto) 5.7 x10^3uL (1.8-7.7) Lymphocytes # (Auto) 3.0 x10^3/uL (1.0-4.8) Monocytes # (Auto) 0.8 x10^3/uL (0.0-1.1) Eosinophils # (Auto) 0.3 x10^3/uL (0.0-0.7) Basophils # (Auto) 0.0 x10^3/uL (0.0-0.2) Erythrocyte Sedimentation Rate 40 (0-15) Sodium Level 140 mmol/L (136-145) Potassium Level 3.4 mmol/L (3.5-5.1) Chloride Level 102 mmol/L (98-107) Carbon Dioxide Level 28 mmol/L (21-32) Anion Gap 10 (6-14) Blood Urea Nitrogen 9 mg/dL (8-26) Creatinine 0.9 mg/dL (0.7-1.3) Estimated GFR (Cockcroft-Gault) 101.5 BUN/Creatinine Ratio 10 (6-20) Glucose Level 146 mg/dL (70-99) Calcium Level 9.0 mg/dL (8.5-10.1) Total Bilirubin 1.7 mg/dL (0.2-1.0) Aspartate Amino Transf (AST/SGOT) 20 U/L (15-37) Alanine Aminotransferase (ALT/SGPT) 29 U/L (16-63) Alkaline Phosphatase 70 U/L (46-116) Total Protein 6.7 g/dL (6.4-8.2) Albumin 2.8 g/dL (3.4-5.0) Albumin/Globulin Ratio 0.7 (1.0-1.7) Glucose (Fingerstick) 161 mg/dL (70-99) Laboratory Tests Test 09/06/18 11:55 09/06/18 16:59 09/06/18 20:57 09/07/18 02:35 Glucose (Fingerstick) 193 mg/dL (70-99) 180 mg/dL (70-99) 212 mg/dL (70-99) White Blood Count 9.8 x10^3/uL (4.0-11.0) Red Blood Count 4.61 x10^6/uL (4.30-5.70) Hemoglobin 14.4 g/dL (13.0-17.5) Hematocrit 40.5 % (39.0-53.0) Mean Corpuscular Volume 88 fL (79-100) Mean Corpuscular Hemoglobin 31 pg (25-35) Mean Corpuscular Hemoglobin Concent 36 g/dL (31-37) Red Cell Distribution Width 12.9 % (11.5-14.5) Platelet Count 184 x10^3/uL (140-400) Neutrophils (%) (Auto) 59 % (31-73) Lymphocytes (%) (Auto) 30 % (24-48) Monocytes (%) (Auto) 8 % (0-9) Eosinophils (%) (Auto) 3 % (0-3) Basophils (%) (Auto) 0 % (0-3) Neutrophils # (Auto) 5.7 x10^3uL (1.8-7.7) Lymphocytes # (Auto) 3.0 x10^3/uL (1.0-4.8) Monocytes # (Auto) 0.8 x10^3/uL (0.0-1.1) Eosinophils # (Auto) 0.3 x10^3/uL (0.0-0.7) Basophils # (Auto) 0.0 x10^3/uL (0.0-0.2) Erythrocyte Sedimentation Rate 40 (0-15) Sodium Level 140 mmol/L (136-145) Potassium Level 3.4 mmol/L (3.5-5.1) Chloride Level 102 mmol/L (98-107) Carbon Dioxide Level 28 mmol/L (21-32) Anion Gap 10 (6-14) Blood Urea Nitrogen 9 mg/dL (8-26) Creatinine 0.9 mg/dL (0.7-1.3) Estimated GFR (Cockcroft-Gault) 101.5 BUN/Creatinine Ratio 10 (6-20) Glucose Level 146 mg/dL (70-99) Calcium Level 9.0 mg/dL (8.5-10.1) Total Bilirubin 1.7 mg/dL (0.2-1.0) Aspartate Amino Transf (AST/SGOT) 20 U/L (15-37) Alanine Aminotransferase (ALT/SGPT) 29 U/L (16-63) Alkaline Phosphatase 70 U/L (46-116) Total Protein 6.7 g/dL (6.4-8.2) Albumin 2.8 g/dL (3.4-5.0) Albumin/Globulin Ratio 0.7 (1.0-1.7) Test 09/07/18 07:43 Glucose (Fingerstick) 161 mg/dL (70-99) Problem List Problems Medical Problems: (1) Biliary colic Status: Acute (2) Gallbladder sludge Status: Acute (3) Hyperglycemia Status: Acute (4) Serum total bilirubin elevated Status: Acute Assessment/Plan s/p darell T bili trending down drain serosang--will leave in place and have pt FU on thursday NOREEN PNEG CHIEF BUILDING INSPECTOR September 07, 2018 11:26
--- NOTE | 2018-09-07 15:07 | NUR ---
Discharge Note: JOMAR MAYES [address] Discharge instructions and discharge home medications reviewed with Patient and a copy given. All questions have been answered and understanding verbalized. The following instructions and handouts were given: Discharge Teaching, Diabetes Diet and Care, Prescriptions for Percocet and Augmentin Discontinued lines and drains: PIV removed, Catheter intact. Patient discharged to Home with [facility]
--- NOTE | 2018-09-08 10:09 | PATHOLOGY ---
[facility] Accession Number: [id number] . 01 Material submitted: . gallbladder - GALLBLADDER . 02 Diagnosis: Gallbladder, cholecystectomy: - Chronic cholecystitis. - Cholelithiasis. (SKM/db; 09/07/2018) LBQ/09/07/2018 . 02 Electronically signed: . Johnny Reina MD, Pathologist NPI- [id number] . 01 Gross description: . The specimen is received in formalin, labeled "Guillermo Merlos, gallbladder", is a disrupted, collapsed gallbladder measuring 7.0 cm in length and 3.5 cm in maximum diameter with a rosales-centeno and dull serosa. The cystic duct is impacted by calculi and the region is dilated. The gallbladder lumen contains yellow-centeno, viscous bile and multiple black, irregular gravel-like calculi measuring 2.5 x 2.0 x 1.2 cm in aggregate. The mucosa is centeno-brown with no discrete cholesterolosis. The wall is 0.2 cm in average thickness. Material Controller tissue is submitted in A1. ([facility]; 09/06/2018) SHS/SHS . 02 Pathologist provided ICD-10: K80.10 . 02 CPT . 057018 Specimen Comment: A courtesy copy of this report has been sent to Specimen Comment: [phone], , , . Specimen Comment: Report sent to ,DR MIRAMONTES,DR WHELAN / DR BOO Performed at: [address], [place], [place] [id number] MD Harpal Vasques MD Phone: [phone] Performed at: 02 [facility] [address] [place], [place] [id number] MD Miguel Guerrero MD Phone: [phone]
== END 2018-09-07 14:30 | disposition home or self-care (01) | DRG 418 ==
LOC: ER 09:48 → 6 SOUTH 12:19
PROVIDERS: ADMIT Family Medicine; ATTEND Family Medicine
PROC: BF101ZZ Fluoroscopy of Bile Ducts using Low Osmolar Contrast (ICD-10-PCS; 2018-09-04)
PROC: 0FT44ZZ Resection of Gallbladder, Percutaneous Endoscopic Approach (ICD-10-PCS; principal; 2018-09-04 15:30)
DX: K80.62 Calculus of gallbladder and bile duct with acute cholecystitis without obstruction (principal); Z68.41 Body mass index [BMI] 40.0-44.9, adult; K82.A1 Gangrene of gallbladder in cholecystitis; E66.01 Morbid (severe) obesity due to excess calories; E11.65 Type 2 diabetes mellitus with hyperglycemia; I10 Essential (primary) hypertension; E87.6 Hypokalemia; D72.828 Other elevated white blood cell count; K82.8 Other specified diseases of gallbladder; Z82.49 Family history of ischemic heart disease and other diseases of the circulatory system
CPT/HCPCS: 36415; 74177; 74300; 76705; 80048; 80053; 80076; 81001; 82247; 82550; 82962; 83690; 84484; 85025; 85651; 85730; 87071; 87075; 88304; 93005; 96374; A7015; J0330; J1100; J1170; J1610; J1815; J2001; J2405; J2543; J2704; J2710; J3010; J3490; J7030; Q9967; 97535; 99285-25

== ENCOUNTER → 2018-12-09 | Outpatient (CLI) | payer MEDICARE ==
[2018-10-14 11:00] VITALS: BP 112/64
[~2018-12-09] MED LIST: AMOX1TAB61 PO; ASPI325T11 PO; ATOR40TA59 PO; BISA5TAB4 PO; GLIP-24 PO; METO1TAB33 PO; OXYC1TAB15 PO; POLY17PO28 PO; TRIA1CAP3 PO
--- NOTE | 2018-12-10 11:02 | RAD ---
MR#: [id number] Date of Study: 12/10/2018 Ordering Physician: JOSE CRUZ AC, Referring Physician: ELI RAMÍREZ Tech: KENYA Galindo ARRT (R) (N) APPROVED REPORT Test Type: Pharmacological Stress Nurse/Tech: Elias Mccrary RN Test Indications: CAD, Pre-op clearance Cardiac History: angioplasty 06, HTN, DM Medications: See Electronic Medical Record Medical History: See Electronic Medical Record Resting ECG: SR Resting Heart Rate: 78 bpm Resting Blood Pressure: 136/70mmHg Pretest Chest Pain: None Nurse/Tech Notes Lungs CTA, S1S2 Consent: The procedure was explained to the patient in lay terms. Informed consent was witnessed. Naif eout was entered into [facility]. History and Stress Test performed by Elias Mccrary RN Pharm. Details Pharmacologic stress testing was performed using 0.4mg per 5ml of regadenoson given intravenously ove r 7-10 seconds. Stress Symptoms No chest pain or symptoms. POST EXERCISE Reason for Termination: Infusion complete Max HR: 94 bpm Max Blood Pressure: 130/70mmHg Blood Pressure response to exercise: Normal blood pressure response during stress. Heart Rate response to exercise: normal response Chest Pain: No. Arrhythmia: No. ST Change: No. INTERPRETATION Stress EKG Conclusion: Baseline EKG showed sinus rhythm. No ischemic changes at peak stress. No arr hythmias. Imaging Protocol IMAGE PROTOCOL: Rest Tc-99m/stress Tc-99m 2 days Rest: Stress: Viability: Radiopharm.Tc99m DslonheafOp45v Sestamibi Img Date 12/09/2018 12/10/2018 Inj-Img Qnxl38fne. 60min. Rest Admin Site:IV - Right HandAdministrator:KENYA Galindo ARRT (R)(N) Stress Admin Site: IV - Right HandAdministrator: RT Suresh (R)(N) STRESS DATA End Diast. Vol.71.0mlLVEDV index BSA30.0ml End Syst. Vol.21.0mlLVESV index BSA9.0ml Myocardial Qaix817.0gEject. Loxkyiwi49.0% Stress Scores Regional WT0.00Summed WT0.00 Regional WM0.00Summed WM4.00 Study quality was good. Left Ventricular size was Normal at Rest and Stress. Lung uptake was . Left Ventricular ejection fraction is 70%. The rest and stress images show normal perfusion, normal contraction and thickening. LV Perf. Quant 17 Seg. SSS1.00 17 Seg. SRS0.00 17 Seg. SDS1.00 Stress Defect Extent (% LAD)0.00Rest Defect Extent (% LAD)0.00Rev. Defect Extent (% LAD)0.00 Stress Defect Extent (% LCX) 3.80Rest Defect Extent (% LCX)0.00Rev. Defect Extent (% LCX)3.80 Stress Defect Extent (% RCA)0.00Rest Defect Extent (% RCA)0.00Rev. Defect Extent (% RCA)0.00 Stress Defect Extent (% KAILEE)1.30Rest Defect Extent (% KAILEE)0.00Rev. Defect Extent (% KAILEE)1.30 Conclusion 1. Regadenoson cardioisotope stress test did not show any evidence of ischemia or infarct. 2. Normal left ventricular systolic function with ejection fraction calculated at 70%. 3. Low risk for cardiac events. Signed by : Jose Cruz Ac, Electronically Approved : 12/10/2018 11:02:32
== END | disposition home or self-care (01) ==
LOC: NM 08:13
PROVIDERS: ATTEND Internal Medicine Cardiovascular Disease
DX: I25.10 Atherosclerotic heart disease of native coronary artery without angina pectoris (principal); I10 Essential (primary) hypertension; E11.9 Type 2 diabetes mellitus without complications; Z79.01 Long term (current) use of anticoagulants; Z95.5 Presence of coronary angioplasty implant and graft
CPT/HCPCS: 78452; A9500

== ENCOUNTER → 2018-12-10 | Outpatient (CLI) | payer MEDICARE ==
[2018-10-14 11:00] VITALS: BP 112/64
[~2018-12-10] MED LIST changes: +REGADENOSON 0.4 MG/5 ML DISP.SYRIN. IV ONE
--- NOTE | 2018-12-10 09:41 | CARD ---
MR#: [id number] Date of Study: 12/10/2018 Ordering Physician: JOSE CRUZ AC, Referring Physician: JOSE CRUZ AC Tech: Flor Gamino RDCS APPROVED REPORT EXAM: Two-dimensional and M-mode echocardiogram with Doppler and color Doppler. Other Information Quality : Fair INDICATION Cardiac Disease: CAD 2D DIMENSIONS RVDd2.9 (2.9-3.5cm)Left Atrium(2D)3.5 (1.6-4.0cm) IVSd0.8 (0.7-1.1cm)Aortic Root(2D)3.3 (2.0-3.7cm) LVDd4.7 (3.9-5.9cm)LVOT Diameter2.0 (1.8-2.4cm) PWd0.9 (0.7-1.1cm)LVDs2.8 (2.5-4.0cm) FS (%) 30.0 %SV75.5 ml LVEF(%)60.0 (>50%) Aortic Valve AoV Peak Mina.184.9cm/sAoV VTI33.4cm AO Peak GR.13.7mmHgLVOT Peak Mina.158.2cm/s AO Mean GR.8mmHgAVA (VMAX)2.63cm2 MAYE (VTI)3.00cm2 Mitral Valve MV E Wmefztqo63.5cm/sMV E Peak Gr.9mmHg MV DECEL [id number] A Wnjgmdap572.9cm/s MV E Mean Gr.3mmHgE/A Ratio0.6 Pulmonary Vein S1 Ffnqnotd06.9cm/sD2 Alpsitbb08.0cm/s LEFT VENTRICLE The left ventricle is normal size. There is normal left ventricular wall thickness. The left ventricu lar systolic function is normal. The Ejection Fraction is 55-60%. There is normal LV segmental wall m otion. Transmitral Doppler flow pattern is Grade I-abnormal relaxation pattern. RIGHT VENTRICLE The right ventricle is normal size. The right ventricular systolic function is normal. ATRIA The left atrium size is normal. The right atrium size is normal. The interatrial septum is intact wit h no evidence for an atrial septal defect or patent foramen ovale as noted on 2-D or Doppler imaging. AORTIC VALVE The aortic valve is not well visualized but appears to be functioning normally by Doppler interrogati on. Doppler and Color Flow revealed no significant aortic regurgitation. There is no significant aort ic valvular stenosis. MITRAL VALVE The mitral valve is calcified and displays decreased opening. There is no evidence of mitral valve pr olapse. Mild mitral valve stenosis. Calculated mitral valve area is 3.1 cm2 with maximum pressure gra dient of 9 mmHg and mean pressure gradient of 3 mmHg. Doppler and Color Flow revealed no mitral valve regurgitation noted. TRICUSPID VALVE The tricuspid valve is normal in structure and function. Doppler and Color Flow revealed no tricuspid valve regurgitation noted. There is no tricuspid valve stenosis. PULMONIC VALVE The pulmonic valve is not well visualized. Doppler and Color Flow revealed no pulmonic valvular regur gitation. There is no pulmonic valvular stenosis. GREAT VESSELS The aortic root is normal in size. The ascending aorta is not well seen. The IVC was not visualized. PERICARDIAL EFFUSION There is no evidence of significant pericardial effusion. Critical Notification Critical Value: No <Conclusion> The left ventricular systolic function is normal. The Ejection Fraction is 55-60%. There is normal LV segmental wall motion. Transmitral Doppler flow pattern is Grade I-abnormal relaxation pattern. Mild mitral valve stenosis. There is no evidence of significant pericardial effusion. Signed by : Jose Cruz Ac, Electronically Approved : 12/10/2018 09:41:14
== END | disposition home or self-care (01) ==
LOC: ECHO 15:55
PROVIDERS: ATTEND Internal Medicine Cardiovascular Disease
DX: I05.0 Rheumatic mitral stenosis (principal); I25.10 Atherosclerotic heart disease of native coronary artery without angina pectoris; R00.8 Other abnormalities of heart beat
CPT/HCPCS: 93017; 93306; J2785; 96376

== ENCOUNTER → 2019-01-31 | Outpatient (CLI) | payer MEDICARE ==
[2018-10-14 11:00] VITALS: BP 112/64
[~2019-01-31] MED LIST changes: +METO-247 PO; -REGADENOSON 0.4 MG/5 ML DISP.SYRIN. IV ONE
[2019-01-31 09:33] LABS: PROTHROMBIN TIME PATIENT 13.3 SEC (11.7-14.0)
[2019-01-31 09:43] LABS: CALCIUM 9.9 mg/dL (8.5-10.1); CREATININE 0.8 mg/dL (0.7-1.3); GFR 116.3; POTASSIUM 4.1 mmol/L (3.5-5.1)
[2019-01-31 09:48] LABS: BILIRUBIN,URINE SMALL (NEG); CLARITY,URINE CLEAR; NITRITE,URINE NEGATIVE (NEG); PROTEIN,URINE NEGATIVE (NEG-TRACE)
[2019-01-31 10:12] LABS: BASO # 0.1 x10^3/uL (0.0-0.2); BASO % 1 % (0-3); EOS # 0.2 x10^3/uL (0.0-0.7); EOS % 2 % (0-3); HEMATOCRIT 45.7 % (39.0-53.0); HEMOGLOBIN 16.4 g/dL (13.0-17.5); LYMPH # 2.9 x10^3/uL (1.0-4.8); LYMPH % 32 % (24-48); MEAN CORPUSCULAR HEMOGLOBIN 32 pg (25-35); MEAN CORPUSCULAR HGB CONC 36 g/dL (31-37); MEAN CORPUSCULAR VOLUME 88 fL (79-100); MONO # 0.8 x10^3/uL (0.0-1.1); MONO % 9 % (0-9); NEUT # 5.1 x10^3/uL (1.8-7.7); NEUT % 56 % (31-73); PLATELET COUNT 186 x10^3/uL (140-400); RED BLOOD COUNT 5.18 x10^6/uL (4.30-5.70); RED CELL DISTRIBUTION WIDTH 12.7 % (11.5-14.5); WHITE BLOOD COUNT 9.1 x10^3/uL (4.0-11.0)
[2019-01-31 10:13] LABS: COLOR,URINE YELLOW; SQUAMOUS EPITHELIAL CELL,UR OCC /LPF
[2019-01-31 10:23] LABS: BACTERIA,URINE FEW /HPF (0-FEW); RBC,URINE 0 /HPF (0-2)
--- NOTE | 2019-01-31 16:41 | RAD ---
CHEST PA LATERAL INDICATION: Preoperative evaluation. COMPARISON STUDY: None. FINDINGS: Lungs: Normal lung volume. No pulmonary mass or consolidation. The tracheobronchial tree and hilar structures are normal. Pleura: No pleural effusion or pneumothorax. Heart and Mediastinum: The cardiomediastinal silhouette is normal. The great vessels of the thorax are normal. IMPRESSION: No acute cardiopulmonary process. Electronically signed by: Luis M Quintanilla MD (01/31/2019 3:25 PM) [facility]
[2019-01-31 23:10] LABS: HEMOGLOBIN A1C 6.4 % (4.8-5.6)
== END | disposition home or self-care (01) ==
LOC: SURGPAT 13:07
PROVIDERS: ATTEND Orthopaedic Surgery
DX: Z01.818 Encounter for other preprocedural examination (principal); M16.11 Unilateral primary osteoarthritis, right hip; I10 Essential (primary) hypertension; E11.9 Type 2 diabetes mellitus without complications
CPT/HCPCS: 36415; 71046; 80048; 81001; 82040; 82306; 83036; 85025; 85610; 85651; 85730; 87641

== ENCOUNTER 2019-02-08 06:05 | Inpatient (IN) | payer MEDICARE ==
[~2019-02-08] VITALS: Ht 177.8 cm; Wt 123.8 kg
[2019-02-08] VITALS (8 sets, daily range): BP systolic 105–142; BP diastolic 58–80
[~2019-02-08 06:05] MED LIST changes: +ACETAMINOPHEN 500 MG TABLET PO PRN; +GABAPENTIN 300 MG CAPSULE. PO PRN; +MELOXICAM 7.5 MG TABLET PO PRN; +MORPHINE SULFATE 5 MG, KETOROLAC 30MG VIAL 30 MG, ROPIVacaine 0.5% PF 60 ML, EPINEPHrin... INT ART ONE; +TRANEXAMIC ACID 1,000 MG in IV NS 50ML -- 1ST BAG INJ ONE; +VANCOMYCIN 1GM IVPB FOR OMNI 250 ML IV PRN
[2019-02-08] MEDS ORDERED: HYDROmorphone 2 MG/ML VIAL IV PRN (07:00)
[2019-02-08] MEDS ORDERED: MORPHINE SULFATE 2 MG/ML VIAL. IV PRN ×2 (07:00→08:00)
[2019-02-08] MEDS ORDERED: LIDOCAINE 1% PF 2 ML VIAL. ID PRN (07:00)
[2019-02-08] MEDS ORDERED: ONDANSETRON PF 4 MG/2 ML VIAL. IV PRN (07:00)
[2019-02-08] MEDS ORDERED: PROCHLORPERAZINE 10 MG/2 ML VIAL. IV PRN (07:00)
[2019-02-08] MEDS ORDERED: IV RINGERS,LACTATED 1000ML 1,000 ML IV SCH (07:00)
[2019-02-08] MEDS ORDERED: fentaNYL PF VIAL 100 MCG/2 ML VIAL IV PRN ×2 (07:00→08:00)
[2019-02-08] MEDS ORDERED: NEOSTIGMINE METHYLSULFATE 5 MG/5 ML SYRINGE. ONE (07:13)
[2019-02-08] MEDS ORDERED: fentaNYL PF VIAL 100 MCG/2 ML VIAL ONE ×2 (07:13→08:37)
[2019-02-08] MEDS ORDERED: ROCURONIUM 50 MG/5 ML VIAL. ONE (07:13)
[2019-02-08] MEDS ORDERED: GLYCOPYRROLATE 1 MG/5 ML VIAL. ONE (07:15)
[2019-02-08] MEDS ORDERED: MIDAZOLAM HCL/PF 2 MG/2 ML VIAL. ONE (07:15)
[2019-02-08] MEDS: INSULIN LISPRO 100 UNIT/ML 3ML VIAL for OP,RR ONLY. SQ PRN ×2 (07:23→10:35)
[2019-02-08] MEDS ORDERED: SCOPOLAMINE 1.5MG PATCH. TD ONE (07:30)
[2019-02-08 07:42] LABS: PROTHROMBIN TIME PATIENT 13.6 SEC (11.7-14.0)
[2019-02-08] MEDS ORDERED: TRANEXAMIC ACID 1,000 MG in IV NS 50ML -- 2ND BAG INJ ONE (08:00)
[2019-02-08] MEDS ORDERED: DEXTROSE 50% 25 GM / 50ML DISP.SYRIN. IV PRN (08:00)
[2019-02-08] MEDS ORDERED: ZOLPIDEM 5 MG TABLET. PO PRN (08:00)
[2019-02-08] MEDS ORDERED: 0.9 % SODIUM CHLORIDE 10 ML DISP.SYRIN. IV PRN (08:00)
[2019-02-08] MEDS ORDERED: diphenhydrAMINE 50 MG/ML VIAL IV PRN (08:00)
[2019-02-08] MEDS ORDERED: PROCHLORPERAZINE 5 MG TABLET. PO PRN (08:00)
[2019-02-08] MEDS ORDERED: CALCIUM CARBONATE 500 MG TAB.CHEW PO PRN (08:00)
--- NOTE | 2019-02-08 08:11 | HP ---
ADMIT DATE: 02/08/2019 PREOPERATIVE HISTORY AND PHYSICAL CHIEF COMPLAINT: Right hip pain and DJD. HISTORY OF PRESENT ILLNESS: The patient has had progressive severe right hip pain and noted a couple of months prior to his last clinic visit, his hip locked and he was unable to move it. He actually had to call an ambulance to get it moving again and an intraarticular steroid injection gave him good pain relief, but has since recurred and is very severely affecting his activities of daily living. PAST MEDICAL HISTORY: Significant for type 2 diabetes, hypertension and hypercholesterolemia. PAST SURGICAL HISTORY: Angioplasty in 2005, back surgery in 1993 and laparoscopic cholecystectomy in 08/2018. FAMILY HISTORY: Lung cancer in his father as well as heart disease. Mother is from unknown causes. MEDICATIONS: List is reviewed including atorvastatin, metoprolol, triamterene/hydrochlorothiazide, aspirin and glipizide. ALLERGIES: He has no known drug allergies. SOCIAL HISTORY: Denies smoking, alcohol or drug use. He accompanied by his and family today. REVIEW OF SYSTEMS: He denies any chest pain, shortness of breath, recent fever, chills, constitutional symptoms, focal weakness, numbness, tingling, radiating pain, significant for the right hip pain and he had 2 teeth pulled since his last evaluation with me a little over a month ago. PHYSICAL EXAMINATION: VITAL SIGNS: Per admission sheet. HEENT: Atraumatic, normocephalic. HEART: Regular rate and rhythm. LUNGS: Clear to auscultation bilaterally. ABDOMEN: Benign. EXTREMITIES: Examination of the right hip, he is extremely painful with any flexion, extension or internal and external rotation of the hip. He has severe pain with any extremes of his already limited range of motion. He has normal examination of the contralateral hip, bilateral knees and ankles with normal alignment stability. Negative straight leg raise sign but he does have intact motor function, distal pulses, sensation, reflexes, skin in both lower extremities throughout. IMAGING: X-rays show a loss of his right hip joint space and some mild degenerative change in the left hip. ASSESSMENT: Severe right hip pain with degenerative changes, very severe in the right hip and cezv-xu-bygzhkgv in the left. TREATMENT PLAN: I had gone over with him treatment options. He has undergone extensive nonoperative management, activity modification, assisted ambulation, the injection but has severe recurring pain and he is very limited in his activities of daily living and particularly wants to proceed due to the locking up occurrence previously. I had gone over with him the possibility of leg length inequality, infection, nerve or blood vessel damage, premature wear or loosening, instability, medical or other anesthetic complications among others. All his questions were answered. He wishes to proceed with surgical evaluation and treatment today, which will include [facility] admission to follow. SHANON VELAZQUEZ MD DR: PERCY/nts JOB#: [id number] / [id number]
[2019-02-08] MEDS ORDERED: ePHEDrine PF IN SALINE 50 MG/10 ML SYRINGE. IV ONE (08:14)
[2019-02-08] MEDS ORDERED: PROPOFOL 20 ML IV ONE (09:06)
[2019-02-08] MEDS ORDERED: LIDOCAINE 2% PF 5 ML VIAL. ONE (09:06)
[2019-02-08] MEDS ORDERED: DEXAMETHASONE SOD PHOS 4 MG/ML VIAL ONE (09:06)
[2019-02-08] MEDS ORDERED: ONDANSETRON PF 4 MG/2 ML VIAL. ONE (09:06)
--- NOTE | 2019-02-08 10:44 | PDOC4 ---
Operative Note Operative Note Date of surgery: 02/08/2019 Preoperative diagnosis: Degenerative right hip Postoperative diagnosis: Same Operative procedure: Right total hip arthroplasty Surgeon: Walter Assist: Andrea Swann nurse practitioner Anesthesia: Gen. Estimated blood loss: 500 mL Complications: None Specimens: Femoral head to pathology Operative indications: Please see dictated clinic and history and physical notes for detailed operative indications Operative text: Patient was identified procedure verified patient placed in the supine position on the operating table. After adequate amounts of general anesthesia were administered he was placed decubitus right side up all bony prominences were well-padded and he was stabilized with the Stulberg hip positioner the right hip was prepped and draped in standard sterile fashion and after timeout was performed a curvilinear incision was made over the greater trochanter dissection carried out down to the fascia where iliotibial band and gluteal fascia were divided in line with their fibers external rotators were divided from their insertion hip capsule was split in a T fashion hip was dislocated femoral neck cut was made with the cutting guide acetabulum was exposed contents of the fovea and any residual labrum were removed and reaming carried out up to a size 55 a size 56 hemispherical cluster hole cup was impacted in proper version a single screw was placed superiorly 35 mm in length with excellent bite and a size 40 standard nonelevated liner was impacted. Reaming and broaching carried out of the femoral stem and a size 14 high offset Synergy porous coated stem was impacted after trial fitting and a +840 mm Oxinium femoral head was likewise impacted after trialing which showed excellent stability range of motion reproduction of leg length and offset. Thorough irrigation carried out normal saline solution hip capsule was repaired with #5 Ethibond external rotators were reattached transosseously with #5 Ethibond Hemovac drain and pain catheter were placed the pain catheter mixture was injected throughout the joint capsule and surrounding tissues. Fascia was closed with #5 Ethibond in interrupted fashion and reinforced with #1 PDS strata fix subcutaneous closure with buried Vicryl suture skin closure with subcuticular Monocryl strata fix greg dressing was placed patient was returned to recovery room in stable condition having tolerated procedure well. Andrea Swann nurse practitioner was present for the procedure and assisted in the positioning prepping draping retraction and skin closure SHANON VELAZQUEZ MD Feb 08, 2019 10:44
[2019-02-08] MEDS: fentaNYL PF VIAL 100 MCG/2 ML VIAL IV PRN ×2 (10:58→11:10)
--- NOTE | 2019-02-08 11:00 | RAD ---
Examination: HIP RIGHT 2V WITH PELVIS History: Postoperative right hip arthroplasty Comparison/Correlation: None Findings: Frontal view of the pelvis was obtained. Frontal view of the right hip and frog leg lateral view right hip were obtained. Portable technique was utilized. The hip joint prosthesis is intact. No suggestion of loosening. Overlying drain is present laterally. Soft tissue gas is noted consistent with postoperative status. No fracture evident. Impression: Postoperative right hip joint prosthesis. Electronically signed by: Raghav Awad MD (02/08/2019 10:58 AM) [facility]
[2019-02-08] MEDS: IV NORMAL SALINE 1000ML BAG 1,000 ML IV SCH ×2 (11:20→21:28)
--- NOTE | 2019-02-08 11:30 | NUR ---
Patient arrived to the unit in a bed from PACU around 1118. He is on room air and ALOx4 with some drowsiness noted. NANCIE hose on his LLE. Laura on feet for compression. Pain rated around 5-6 which he states is "ok". Patient family at bedside. He states he has a couple teeth that have been removed recently and requested a soft diet which was ordered. IV infusing properly. Dressing to hip dry/intact with IAC and hemovac in place. Hemovac was unclamped by PACU nurse upon arrival to the unit. Will continue to monitor.
[2019-02-08] MEDS: ONDANSETRON ODT 4 MG TAB.RAPDIS. PO SCH ×2 (12:00→18:00)
[2019-02-08] MEDS: ONDANSETRON PF 4 MG/2 ML VIAL. IV SCH ×2 (12:00→18:00)
[2019-02-08] MEDS ORDERED: HYDROcodone/APAP 5/325MG 1 TAB TABLET PO PRN (12:15)
[2019-02-08] MEDS: ceFAZolin SODIUM 3 GM in IV DEXTROSE 5% 100ML 100 ML IV SCH ×2 (13:20→18:12)
[2019-02-08] MEDS ORDERED: WARFARIN 7.5 MG TABLET. PO ONE (16:00)
[2019-02-08] MEDS: HYDROcodone/APAP 5/325MG 1 TAB TABLET PO PRN ×2 (16:27→23:33)
[2019-02-08] MEDS: FERROUS SULFATE 325 MG TABLET. PO SCH (16:27)
--- NOTE | 2019-02-08 17:05 | NUR ---
Called the doctor campaign consultant in regards to patients elevated blood sugars this afternoon/evening. Order obtained from Dr Mendoza to start the patient on a low sliding scale insulin. Will continue to monitor and follow up.
[2019-02-08] MEDS: INSULIN LISPRO 300 UNITS/3 ML VIAL. SQ SCH (17:24)
[2019-02-08] MEDS: KETOROLAC 30MG VIAL 30 MG, BUPIVACAINE MPF 0.25% 20 ML, EPINEPHrine 0.5 MG in TOTAL VOL... INT ART SCH (18:08)
[2019-02-08] MEDS: ATORVASTATIN CALCIUM 40 MG TABLET. PO SCH (21:28)
[2019-02-09] VITALS (7 sets, daily range): BP systolic 96–120; BP diastolic 54–78
[2019-02-09] MEDS: ceFAZolin SODIUM 3 GM in IV DEXTROSE 5% 100ML 100 ML IV SCH (00:20)
[2019-02-09 05:01] LABS: PROTHROMBIN TIME PATIENT 14.5 SEC (11.7-14.0)
[2019-02-09 05:10] LABS: HEMATOCRIT 36.6 % (39.0-53.0); HEMOGLOBIN 12.7 g/dL (13.0-17.5)
[2019-02-09] MEDS: KETOROLAC 30MG VIAL 30 MG, BUPIVACAINE MPF 0.25% 20 ML, EPINEPHrine 0.5 MG in TOTAL VOL... INT ART SCH (05:38)
[2019-02-09] MEDS: traMADol 50 MG TABLET PO SCH ×4 (05:43→23:51)
[2019-02-09] MEDS: ONDANSETRON PF 4 MG/2 ML VIAL. IV SCH ×2 (06:00)
[2019-02-09] MEDS ORDERED: MAGNESIUM HYDROXIDE 2,400 MG/30 ML ORAL.SUSP. PO PRN (06:00)
[2019-02-09] MEDS ORDERED: GABAPENTIN 100 MG CAPSULE. PO SCH (06:00)
[2019-02-09] MEDS: ONDANSETRON ODT 4 MG TAB.RAPDIS. PO SCH ×2 (06:00)
[2019-02-09] MEDS: INSULIN LISPRO 300 UNITS/3 ML VIAL. SQ SCH ×3 (07:30→17:15)
[2019-02-09] MEDS: SENNOSIDES/DOCUSATE 8.6/50MG TABLET. PO SCH (08:10)
[2019-02-09] MEDS: MULTIVITAMIN with MINERAL TABLET. PO SCH (08:10)
[2019-02-09] MEDS: FERROUS SULFATE 325 MG TABLET. PO SCH ×2 (08:10→16:09)
[2019-02-09] MEDS: MELOXICAM 7.5 MG TABLET PO SCH (08:13)
[2019-02-09] MEDS: glipiZIDE ER 2.5 MG TAB.ER.24 PO SCH (08:14)
--- NOTE | 2019-02-09 08:15 | NUR ---
NICOLAS IS UP IN RECLINER. HE IS RATING HIS PAIN 5-6. HE WAS MEDICATED WITH ULTRAM EARLIER. TOLERATED BREAKFAST WITH COMPLAINTS OF NAUSEA. HE WAS HYPOTENSIVE DURING THE NIGHT; BLOOD PRESSURE MEDICATIONS HELD THIS AM WILL CONTINUE TO MONITOR. HE HAS GOOD SENSATION, MOTION AND BILATERAL LOWER EXTREMITIES PULSES.
[2019-02-09] MEDS: ACETAMINOPHEN 500 MG TABLET PO SCH ×3 (09:00→20:50)
[2019-02-09] MEDS: TRIAMTERENE/HCTZ 37.5/25MG TABLET. PO SCH (09:00)
[2019-02-09] MEDS: METOPROLOL SUCC 24HR ER 100 MG TAB.ER.24H. PO SCH (09:00)
[2019-02-09] MEDS: HYDROcodone/APAP 5/325MG 1 TAB TABLET PO PRN (09:20)
--- NOTE | 2019-02-09 11:33 | NUR ---
Pharmacy Warfarin Dosing Note S: Pharmacy consulted to assist with anticoagulation therapy started 02/08/19 O: JOMAR MAYES is a 68 year old M with JEANNINE LABS: Last INR: 1.2 Last HGB: 12.7 Last HCT: 36.6 Last PLT: -- Last dose of 7.5 mg given on 02/08/19 at 1627 Ongoing Drug Interactions: MOBIC A:INR of 1.2 is below desired range. Target range for this patient is: 1.6 - 2.5 P: Warfarin dose: 5 mg Today at 1600 Bridge Therapy: None Next INR due 02/10/19 AM Pharmacy anticoagulation service will continue to follow. MACY RICHARD [facility], 02/09/19 1132
[2019-02-09] MEDS ORDERED: ONDANSETRON PF 4 MG/2 ML VIAL. IV PRN (12:00)
[2019-02-09] MEDS ORDERED: ONDANSETRON ODT 4 MG TAB.RAPDIS. PO PRN (12:00)
--- NOTE | 2019-02-09 15:19 | NUR ---
ORIGINAL SURGICAL DRESSING REMOVED; LEAVING MICHELLE DRESSING INTACT. IAC AND HEMOVAC REMOVED; TOLERATED WELL. MICHELLE DRESSING CLEAN AND DRY; GREEN LIGHT ON
[2019-02-09] MEDS ORDERED: WARFARIN 5 MG TABLET. PO ONE (16:00)
[2019-02-09] MEDS ORDERED: BISACODYL 10 MG SUPP.RECT. PR PRN (16:00)
--- NOTE | 2019-02-09 18:12 | PDOC ---
PROGRESS NOTES Subjective Subjective Problems overnight: Some soreness in the hip but overall feels better than before surgery and getting around well in the early going Objective Vital Signs Vital Signs Date Time Temp Pulse Resp B/P (MAP) Pulse Ox O2 Delivery O2 Flow Rate FiO2 02/09/19 18:04 97.6 85 20 100/55 (70) 96 Room Air 97.6 02/09/19 07:00 2.0 Physical Exam Leg lengths are equal distal neurovascular status intact greg dressing intact Labs Laboratory Tests Test 02/08/19 06:45 02/08/19 06:53 02/08/19 10:30 02/08/19 11:28 Prothrombin Time 13.6 SEC (11.7-14.0) Prothromb Time International Ratio 1.1 (0.8-1.1) Activated Partial Thromboplast Time 29 SEC (24-38) Glucose (Fingerstick) 180 mg/dL (70-99) 242 mg/dL (70-99) 233 mg/dL (70-99) Test 02/08/19 16:32 02/08/19 21:20 02/09/19 04:08 02/09/19 06:11 Glucose (Fingerstick) 230 mg/dL (70-99) 247 mg/dL (70-99) 172 mg/dL (70-99) Hemoglobin 12.7 g/dL (13.0-17.5) Hematocrit 36.6 % (39.0-53.0) Mean Corpuscular Hemoglobin Concent 35 g/dL (31-37) Prothrombin Time 14.5 SEC (11.7-14.0) Prothromb Time International Ratio 1.2 (0.8-1.1) Test 02/09/19 11:16 02/09/19 16:37 Glucose (Fingerstick) 221 mg/dL (70-99) 255 mg/dL (70-99) Laboratory Tests Test 02/08/19 21:20 02/09/19 04:08 02/09/19 06:11 02/09/19 11:16 Glucose (Fingerstick) 247 mg/dL (70-99) 172 mg/dL (70-99) 221 mg/dL (70-99) Hemoglobin 12.7 g/dL (13.0-17.5) Hematocrit 36.6 % (39.0-53.0) Mean Corpuscular Hemoglobin Concent 35 g/dL (31-37) Prothrombin Time 14.5 SEC (11.7-14.0) Prothromb Time International Ratio 1.2 (0.8-1.1) Test 02/09/19 16:37 Glucose (Fingerstick) 255 mg/dL (70-99) Imaging Postop x-rays show excellent alignment of the total hip arthroplasty and leg lengths appear to be very close as does his offset Assessment Assessment POD# 1 right total hip arthroplasty Plan Plan of Care Mobilize with physical therapy weightbearing as tolerated standard total hip precautions Warfarin anticoagulation SHANON VELAZQUEZ MD Feb 09, 2019 18:12
[2019-02-09] MEDS: ATORVASTATIN CALCIUM 40 MG TABLET. PO SCH (20:50)
[2019-02-10] MEDS: ACETAMINOPHEN 500 MG TABLET PO SCH ×2 (02:58→08:00)
[2019-02-10 05:10] LABS: HEMATOCRIT 31.8 % (39.0-53.0); HEMOGLOBIN 11.3 g/dL (13.0-17.5)
[2019-02-10 05:17] LABS: PROTHROMBIN TIME PATIENT 17.5 SEC (11.7-14.0)
[2019-02-10] MEDS: traMADol 50 MG TABLET PO SCH ×3 (05:50→16:52)
[2019-02-10 06:00] VITALS: BP 113/57
[2019-02-10 08:00] VITALS: BP 94/55
[2019-02-10] MEDS: SENNOSIDES/DOCUSATE 8.6/50MG TABLET. PO SCH (08:00)
[2019-02-10] MEDS: glipiZIDE ER 2.5 MG TAB.ER.24 PO SCH (08:00)
[2019-02-10] MEDS: INSULIN LISPRO 300 UNITS/3 ML VIAL. SQ SCH ×3 (08:00→16:55)
[2019-02-10] MEDS: MULTIVITAMIN with MINERAL TABLET. PO SCH (08:00)
[2019-02-10] MEDS: MELOXICAM 7.5 MG TABLET PO SCH (08:03)
[2019-02-10] MEDS: FERROUS SULFATE 325 MG TABLET. PO SCH ×2 (08:04→16:52)
[2019-02-10] MEDS ORDERED: HYDROcodone/APAP 10/325 1 TAB TABLET PO ONE (09:30)
--- NOTE | 2019-02-10 11:47 | NUR ---
Pharmacy Warfarin Dosing Note S: Pharmacy consulted to assist with anticoagulation therapy started 02/08/19 O: JOMAR MAYES is a 68 year old M with JEANNINE LABS: Last INR: 1.5 Last HGB: 11.3 Last HCT: 31.8 Last PLT: Last dose of 5 mg given on 02/09/19 at 1609 Vitamin K given: N Ongoing Drug Interactions: MOBIC A:INR of 1.5 is below desired range. Target range for this patient is: 1.6 - 2.5 P: Warfarin dose: 3 mg Today at 1600 Bridge Therapy: None Next INR due tomorrow Pharmacy anticoagulation service will continue to follow. Misty Aj RPH, 02/10/19 [phone]
[2019-02-10] MEDS: METOPROLOL SUCC 24HR ER 100 MG TAB.ER.24H. PO SCH (12:11)
[2019-02-10] MEDS: TRIAMTERENE/HCTZ 37.5/25MG TABLET. PO SCH (12:11)
--- NOTE | 2019-02-10 15:07 | PATHOLOGY ---
[facility] Accession Number: [id number] . 01 Material submitted: . hip - RIGHT HIP BONE AND TISSUE. Modifiers: right . 01 Clinical history: . OA Rt hip . 02 Diagnosis: Femoral head and separate segments of bone, cartilage and soft tissue, right hip total arthroplasty: - Advanced degenerative arthritis, with focal subarticular cystic degeneration. (JPM:front end assistant; 02/10/2019) MBR 02/10/2019 1237 Local . 02 Electronically signed: . Miguel Guerrero MD, Pathologist NPI- [id number] . 01 Gross description: . Received in formalin labeled "Guillermo Merlos, right hip bone and tissue," is a femoral head measuring 5.6 x 5.6 x 6.3 cm in greatest dimensions admixed with a 13.7 x 8.2 x 2.4 cm aggregate of bone reamings, blood clot and scant soft tissue fragments. The femoral head articular surface is smooth to granular and pale yellow-centeno to dark brown in appearance, displaying an area of extensive eburnation/pitting measuring 4.9 x 3.2 cm. Osteophyte formation is noted at the peripheral articular surface, as well as obscuring a portion of the articular surface opposite the eburnated area. Serial sectioning reveals yellow-centeno to extensively hemorrhagic cut surfaces, with a single hollow cystic structure noted underlying the articular surface that measures up to 0.5 cm on cut surface. Fire Investigation Manager sections of the femoral head articular surface are submitted in cassette A1 following decalcification, to representatively include the cystic structure. Fire Investigation Manager bone reamings and soft tissue are submitted in cassette A2, following decalcification. (DAC; 02/09/2019) XDC/XDC 02/09/2019 0702 Local . 02 Pathologist provided ICD-10: M16.11 . 02 CPT . 294574, 388361 Specimen Comment: A courtesy copy of this report has been sent to Specimen Comment: [phone], . Specimen Comment: Report sent to / DR THOMPSON Performed at: [address], [place] [id number] MD Harpal Vasques MD Phone: [phone] Performed at: [facility] [address] [place], [place] [id number] MD Miguel Guerrero MD Phone: [phone]
[2019-02-10] MEDS ORDERED: WARFARIN 3 MG TABLET. PO ONE (16:00)
[2019-02-10 18:30] VITALS: BP 140/70
[2019-02-10] MEDS: ATORVASTATIN CALCIUM 40 MG TABLET. PO SCH (21:35)
[2019-02-10] MEDS: HYDROcodone/APAP 5/325MG 1 TAB TABLET PO PRN (21:37)
[2019-02-11 05:07] LABS: HEMATOCRIT 32.2 % (39.0-53.0); HEMOGLOBIN 11.3 g/dL (13.0-17.5)
[2019-02-11 06:00] VITALS: BP 120/64
[2019-02-11] MEDS: traMADol 50 MG TABLET PO SCH ×3 (06:04→12:27)
[2019-02-11] MEDS: glipiZIDE ER 2.5 MG TAB.ER.24 PO SCH (07:57)
[2019-02-11] MEDS: MULTIVITAMIN with MINERAL TABLET. PO SCH (07:58)
[2019-02-11] MEDS: HYDROcodone/APAP 5/325MG 1 TAB TABLET PO PRN (07:58)
[2019-02-11] MEDS: MELOXICAM 7.5 MG TABLET PO SCH (07:58)
[2019-02-11] MEDS: SENNOSIDES/DOCUSATE 8.6/50MG TABLET. PO SCH (07:58)
[2019-02-11] MEDS: INSULIN LISPRO 300 UNITS/3 ML VIAL. SQ SCH ×2 (07:59→11:35)
[2019-02-11] MEDS: FERROUS SULFATE 325 MG TABLET. PO SCH (08:00)
--- NOTE | 2019-02-11 10:23 | NUR ---
Pharmacy Warfarin Dosing Note S: Pharmacy consulted to assist with anticoagulation therapy started 02/08/19 O: JOMAR MAYES is a 68 year old M with a JEANNINE LABS: Last INR: 1.4 Last HGB: 11.3 Last HCT: 32.2 Last PLT: - Last dose of 5 mg given on 02/10/19 at 1600 Ongoing Drug Interactions: MOBIC A:INR of 1.4 is below desired range. Target range for this patient is: 1.6 - 2.5 P: Warfarin dose: 5 mg today prior to discharge Next INR due Thursday, Feb 14 by [facility] Outpatient pharmacy anticoagulation service will continue to follow. REYNA BAUMANN [facility], 02/11/19 [phone]
[2019-02-11] MEDS ORDERED: HYDR-3164 PO (12:32)
--- NOTE | 2019-02-11 12:34 | SNU/HH DC ---
DISCHARGE WITH HOME HEALTH DISCHARGE INFORMATION: Condition on Discharge: Stable CODE STATUS: Code Status: Full HOME HEALTH: Face to Face: I certify this patient is under my care and that I, or a nurse practitioner or physician's housing assistant working with me, had a face to face encounter that meets the physician face to face encounter requirements with this patient on [02/11/19]. RN For Eval/Treatment: Yes Physical Therapy For: Evalulation/Treatment Pt Meets Homebound Status: Limited distance walking POST DISCHARGE ORDERS: Activity Instructions for Disc: Activity as tolerated (standard total hip precautions avoiding extreme flexion or internal rotation) Weight Bearing Status after Di: As tolerated DIET AFTER DISCHARGE: Cardiac Wound/Incision Care: Change dressing, May get incision wet FOLLOW-UP: Follow up with: Dr. Watson 2 weeks postoperatively TREATMENT/EQUIPMENT ORDERS: Adaptive Equipment Issued: Front wheeled walker CERTIFICATION STATEMENT: Certification Statement: Certification Statement: Based on the above finding, I certify that this patient is confined to the home and needs intermittent alf care, physical therapy and/or speech therapy, or continues to need occupational therapy.~ This patient is under my care, and I have initiated the establishment of the plan of care.~ This patient will be followed by myself or a community physician who will periodically review the plan of care. Home Meds Reported Medications Metoprolol Succinate (METOPROLOL SUCCINATE ( XL )) 100 Mg Tab.er.24h, 100 MG PO DAILY for FOR HYPERTENSION, #30 TAB 0 Refills 01/31/19 Glipizide (GLIPIZIDE XL) 5 Mg Tab.er.24, 5 MG PO DAILY for diabete, TAB.SR 10/10/18 Aspirin (ASPIRIN EC) 325 Mg Tablet., 1 TAB PO DAILY for blood thinner, #30 TAB 5 Refills 10/10/18 Triamterene/Hydrochlorothiazid (TRIAMTERENE-HCTZ 37.5-25 MG CP) 1 Each Capsule, 1 CAP PO DAILY for high blood pressure, #30 CAP 5 Refills 10/10/18 Atorvastatin Calcium (ATORVASTATIN CALCIUM) 40 Mg Tablet, 1 TAB PO DAILY for Cholesterol, #30 TAB 5 Refills 10/10/18 SHANON WATSON MD Feb 11, 2019 12:34
--- NOTE | 2019-02-11 12:36 | PDOC ---
PROGRESS NOTES Subjective Subjective Problems overnight: Has some soreness muscular and tightness in the hip overall the groin pain is gone and he is pleased with the pain relief but working through the weakness and tightness Objective Vital Signs Vital Signs Date Time Temp Pulse Resp B/P (MAP) Pulse Ox O2 Delivery O2 Flow Rate FiO2 02/11/19 12:27 Room Air 02/11/19 06:04 97 02/11/19 06:00 99.0 84 20 120/64 (82) 99.0 02/10/19 21:37 2.0 Physical Exam greg drain intact leg lengths equal distal neurovascular status intact Labs Laboratory Tests Test 02/09/19 16:37 02/09/19 20:28 02/10/19 04:45 02/10/19 05:56 Glucose (Fingerstick) 255 mg/dL (70-99) 158 mg/dL (70-99) 130 mg/dL (70-99) Hemoglobin 11.3 g/dL (13.0-17.5) Hematocrit 31.8 % (39.0-53.0) Mean Corpuscular Hemoglobin Concent 35 g/dL (31-37) Prothrombin Time 17.5 SEC (11.7-14.0) Prothromb Time International Ratio 1.5 (0.8-1.1) Test 02/10/19 10:55 02/10/19 16:26 02/11/19 03:00 02/11/19 07:11 Glucose (Fingerstick) 147 mg/dL (70-99) 182 mg/dL (70-99) 130 mg/dL (70-99) Hemoglobin 11.3 g/dL (13.0-17.5) Hematocrit 32.2 % (39.0-53.0) Mean Corpuscular Hemoglobin Concent 35 g/dL (31-37) Prothrombin Time 17.0 SEC (11.7-14.0) Prothromb Time International Ratio 1.4 (0.8-1.1) Test 02/11/19 11:27 Glucose (Fingerstick) 171 mg/dL (70-99) Laboratory Tests Test 02/10/19 16:26 02/11/19 03:00 02/11/19 07:11 02/11/19 11:27 Glucose (Fingerstick) 182 mg/dL (70-99) 130 mg/dL (70-99) 171 mg/dL (70-99) Hemoglobin 11.3 g/dL (13.0-17.5) Hematocrit 32.2 % (39.0-53.0) Mean Corpuscular Hemoglobin Concent 35 g/dL (31-37) Prothrombin Time 17.0 SEC (11.7-14.0) Prothromb Time International Ratio 1.4 (0.8-1.1) Assessment Assessment POD# right total hip arthroplasty Plan Plan of Care Plan on discharge with home health service Coumadin per anticoagulation clinic [place] as necessary for pain SHANON VELAZQUEZ MD Feb 11, 2019 12:36
[2019-02-11 12:45] VITALS: BP 103/61
[2019-02-11] MEDS: TRIAMTERENE/HCTZ 37.5/25MG TABLET. PO SCH (12:45)
[2019-02-11] MEDS: METOPROLOL SUCC 24HR ER 100 MG TAB.ER.24H. PO SCH (12:45)
[2019-02-11] MEDS ORDERED: WARFARIN 5 MG TABLET. PO ONE (13:00)
[2019-02-11] MEDS ORDERED: WARF-78 PO (13:44)
--- NOTE | 2019-02-11 15:20 | NUR ---
Discharge instructions given with prescription. Answered questions and concerns. Verbalized understanding. Pt discharged home with home health. Accompanied by son-in-law.
--- NOTE | 2019-02-15 07:26 | DS ---
DATE OF DISCHARGE: 02/11/2019 CHIEF COMPLAINT: Degenerative joint disease, right hip. PROCEDURE: Right total hip arthroplasty. DISPOSITION: Home with home health. ACTIVITY: Weightbearing as tolerated, standard total hip precautions. OTHER INSTRUCTIONS: Maintain MICHELLE dressing, may shower as long as dressing is intact. Report any redness, drainage, fever, chills, uncontrolled pain or other problems. FOLLOWUP: Dr. Watson in 2 weeks. DISPOSITION MEDICATIONS: [place] 5/325 one p.o. q.4h. p.r.n. pain, Coumadin as directed by anticoagulation clinic, resume preoperative medications. BRIEF DESCRIPTION OF HOSPITAL COURSE: The patient underwent uncomplicated right total hip arthroplasty. His hemoglobin and vital signs were stable throughout. He had progressed along well with physical therapy through his ambulation and transfers with some expected soreness of the right hip musculature, but overall good relief of his groin pain. Did have some tightness in the hip and worked through that with physical therapy, was otherwise discharged home in stable condition. SHANON WATSON MD DR: PERCY/harish JOB#: [id number] / [id number]
== END 2019-02-11 15:20 | disposition home health service (06) | DRG 470 ==
LOC: OPSVCIP 06:05 → 4 SOUTHEST 11:00
PROVIDERS: ADMIT Orthopaedic Surgery; ATTEND Orthopaedic Surgery
PROC: 0SR906Z Replacement of Right Hip Joint with Oxidized Zirconium on Polyethylene Synthetic Substitute, Open Approach (ICD-10-PCS; principal; 2019-02-08 07:30)
PROC: 5A09357 Assistance with Respiratory Ventilation, Less than 24 Consecutive Hours, Continuous Positive Airway Pressure (ICD-10-PCS; 2019-02-09)
PROC: 5A09357 Assistance with Respiratory Ventilation, Less than 24 Consecutive Hours, Continuous Positive Airway Pressure (ICD-10-PCS; 2019-02-10)
DX: M16.11 Unilateral primary osteoarthritis, right hip (principal); E11.9 Type 2 diabetes mellitus without complications; E78.00 Pure hypercholesterolemia, unspecified; I10 Essential (primary) hypertension; Z90.49 Acquired absence of other specified parts of digestive tract; Z79.899 Other long term (current) drug therapy; Z82.49 Family history of ischemic heart disease and other diseases of the circulatory system; Z80.1 Family history of malignant neoplasm of trachea, bronchus and lung
CPT/HCPCS: 36415; 73502; 82962; 85014; 85018; 85610; 85730; 86850; 86900; 86901; 88304; 88311; A7015; C1713; J0171; J0690; J1100; J1815; J1885; J2001; J2250; J2270; J2405; J2704; J2710; J2795; J3010; J3370; J3490; J7030; J7120; 97116; 97150; 97530; 97535; G0378

== ENCOUNTER → 2020-05-22 | Outpatient (CLI) | payer MEDICARE ==
[~2020-05-22] MED LIST changes: -ACETAMINOPHEN 500 MG TABLET PO PRN; -GABAPENTIN 300 MG CAPSULE. PO PRN; +HYDR-3164 PO; -MELOXICAM 7.5 MG TABLET PO PRN; -MORPHINE SULFATE 5 MG, KETOROLAC 30MG VIAL 30 MG, ROPIVacaine 0.5% PF 60 ML, EPINEPHrin... INT ART ONE; +PERFLUTREN PROTEIN-A MICROSPHR 0.22 MG/ML 3 ML VIAL. IV ONE; -POLY17PO28 PO; +POLY17PO52 PO; -TRANEXAMIC ACID 1,000 MG in IV NS 50ML -- 1ST BAG INJ ONE; -VANCOMYCIN 1GM IVPB FOR OMNI 250 ML IV PRN; +WARF5TAB2 PO
--- NOTE | 2020-05-22 17:00 | CARD ---
MR#: [id number] Date of Study: 05/22/2020 Ordering Physician: JOSE CRUZ AC, Referring Physician: JOSE CRUZ AC Tech: Nuha Ramos [facility] APPROVED REPORT EXAM: Two-dimensional and M-mode echocardiogram with Doppler and color Doppler. Other Information Quality : LimitedHR: 76bpm Rhythm : NSRTechnically limited study due to body habitus. INDICATION Dyspnea Echo Enhancing Agent Indication: Endocardial border delineation Agent/Amount Used: Optison 2mL RISK FACTORS Hypertension Obesity Hyperlipidemia 2D DIMENSIONS RVDd3.5 (2.9-3.5cm)Left Atrium(2D)4.0 (1.6-4.0cm) IVSd1.4 (0.7-1.1cm)Aortic Root(2D)3.9 (2.0-3.7cm) LVDd4.4 (3.9-5.9cm)LVOT Diameter1.9 (1.8-2.4cm) PWd1.2 (0.7-1.1cm)LVDs3.4 (2.5-4.0cm) FS (%) 23.5 %SV41.9 ml LVEF(%)47.1 (>50%) Aortic Valve AoV Peak Mina.175.5cm/sAoV VTI36.3cm AO Peak GR.12.3mmHgLVOT Peak Mina.141.1cm/s AO Mean GR.5mmHgAVA (VMAX)2.17cm2 Mitral Valve MV E Extmqcwd235.8cm/sMV DECEL [id number] MV A Hsagglsj136.9cm/sE/A Ratio0.9 LEFT VENTRICLE The left ventricle is normal size. There is borderline to mild concentric left ventricular hypertroph y. The left ventricular systolic function is normal and the ejection fraction is within normal range. Estimated ejection fraction 55-60%. There is normal LV segmental wall motion. Tissue Doppler imaging reveals mild left ventricular diastolic dysfunction. RIGHT VENTRICLE The right ventricle is normal size. There is normal right ventricular wall thickness. The right ventr icular systolic function is normal. ATRIA The left atrium size is normal. The right atrium size is normal. The interatrial septum is intact wit h no evidence for an atrial septal defect or patent foramen ovale as noted on 2-D or Doppler imaging. AORTIC VALVE Aortic valve not well visualized. No evidence of severe on doppler imaging but correlate clinicall y given history of dyspnea. Doppler and Color Flow revealed no significant aortic regurgitation. Ther e is no significant aortic valvular stenosis. MITRAL VALVE Mitral annular calcification is mild. There is no evidence of mitral valve prolapse. There is no mitr al valve stenosis. Doppler and Color Flow revealed no mitral valve regurgitation noted. TRICUSPID VALVE The tricuspid valve is normal in structure and function. Doppler and Color Flow revealed no tricuspid valve regurgitation noted. There is no tricuspid valve stenosis. PULMONIC VALVE Doppler and Color Flow revealed no pulmonic valvular regurgitation. There is no pulmonic valvular pau nosis. GREAT VESSELS The aortic root is normal in size. The ascending aorta is normal in size. The IVC is normal in size a nd collapses >50% with inspiration. PERICARDIAL EFFUSION There is no evidence of significant pericardial effusion. Critical Notification Critical Value: No <Conclusion> The left ventricular systolic function is normal and the ejection fraction is within normal range. E stimated ejection fraction 55-60%. There is normal LV segmental wall motion. Aortic valve not well visualized. No evidence of severe on doppler imaging but correlate clinicall y given history of dyspnea. Signed by : Virgil Li, Electronically Approved : 05/22/2020 16:59:41
== END ==
LOC: ECHO 10:42
PROVIDERS: ATTEND Internal Medicine Cardiovascular Disease
DX: I34.0 Nonrheumatic mitral (valve) insufficiency (principal); I51.7 Cardiomegaly; I25.10 Atherosclerotic heart disease of native coronary artery without angina pectoris
CPT/HCPCS: C8929; Q9956

== ENCOUNTER → 2021-06-05 | Outpatient (CLI) | payer MEDICARE ==
--- NOTE | 2021-06-05 17:01 | CARD ---
MR#: [id number] Date of Study: 06/05/2021 Ordering Physician: JOSE CRUZ AC, Referring Physician: JOSE CRUZ AC Tech: Nuha Ramos [facility] APPROVED REPORT EXAM: Two-dimensional and M-mode echocardiogram with Doppler and color Doppler. Other Information Quality : Technically LimitedHR: 75bpm Rhythm : NSRTechnically limited study due to body habitus. INDICATION Cardiac Disease: CAD Echo Enhancing Agent Indication: Endocardial border delineation Agent/Amount Used: Optison 4mL RISK FACTORS Hypertension Obesity Hyperlipidemia Diabetes 2D DIMENSIONS RVDd2.7 (2.9-3.5cm)Left Atrium(2D)4.3 (1.6-4.0cm) IVSd1.1 (0.7-1.1cm)Aortic Root(2D)3.8 (2.0-3.7cm) LVDd4.3 (3.9-5.9cm)LVOT Diameter2.1 (1.8-2.4cm) PWd1.1 (0.7-1.1cm)LVDs2.6 (2.5-4.0cm) FS (%) 39.9 %SV60.4 ml LVEF(%)70.8 (>50%) Aortic Valve AoV Peak Mina.195.9cm/sAoV VTI41.4cm AO Peak GR.15.3mmHgLVOT Peak Mina.129.3cm/s AO Mean GR.7mmHgAVA (VMAX)2.23cm2 Mitral Valve MV E Npzifadq014.2cm/sMV DECEL QSBR102mo MV A Aavguozz544.3cm/sE/A Ratio0.9 Pulmonary Valve PV Peak Uaqqtsnu33.5cm/s Tricuspid Valve TR P. Zpiittuz185td/sTR Peak Gr.27mmHg LEFT VENTRICLE The left ventricle is normal size. There is borderline concentric left ventricular hypertrophy. The l eft ventricular systolic function is normal and the ejection fraction is within normal range. Estimat ed ejection fraction 60%. There is grossly normal LV segmental wall motion. Tissue Doppler imaging re veals moderate left ventricular diastolic dysfunction. RIGHT VENTRICLE The right ventricle is normal size. There is normal right ventricular wall thickness. The right ventr icular systolic function is normal. ATRIA The left atrium size is normal. The right atrium size is normal. The interatrial septum is intact wit h no evidence for an atrial septal defect or patent foramen ovale as noted on 2-D or Doppler imaging. AORTIC VALVE The aortic valve is calcified with restricted leaflet motion. No doppler evidence of significant sten osis. Doppler and Color Flow revealed no significant aortic regurgitation. There is no significant ao rtic valvular stenosis. MITRAL VALVE Mitral annular calcification is mild. There is no evidence of mitral valve prolapse. There is no mitr al valve stenosis. Doppler and Color Flow revealed no mitral valve regurgitation noted. TRICUSPID VALVE The tricuspid valve is normal in structure and function. Doppler and Color Flow revealed no tricuspid valve regurgitation noted. There is no tricuspid valve stenosis. PULMONIC VALVE Doppler and Color Flow revealed no pulmonic valvular regurgitation. There is no pulmonic valvular pau nosis. GREAT VESSELS The aortic root is normal in size. The IVC is normal in size and collapses >50% with inspiration. PERICARDIAL EFFUSION There is no evidence of significant pericardial effusion. Critical Notification Critical Value: No <Conclusion> The left ventricular systolic function is normal and the ejection fraction is within normal range. E stimated ejection fraction 60%. There is grossly normal LV segmental wall motion. The aortic valve is calcified with restricted leaflet motion. No doppler evidence of significant sten osis. Signed by : Virgil Li, Electronically Approved : 06/05/2021 17:00:49
== END ==
LOC: ECHO 10:40
PROVIDERS: ATTEND Internal Medicine Cardiovascular Disease
DX: I08.0 Rheumatic disorders of both mitral and aortic valves (principal); I25.10 Atherosclerotic heart disease of native coronary artery without angina pectoris
CPT/HCPCS: C8929; Q9956